=== PATIENT | male | born 1955 | race Caucasian/White ===

== ENCOUNTER → 2019-03-17 06:50 | Outpatient (CLI) | payer OTHER, SELFPAY ==
--- NOTE | 2019-03-17 | DI.ECHO.S_ITS ---
[place] [facility]---------+ [facility] +---------+ : : [address] : : : [place], [place] : : : : [id number] : : : : Phone: [phone] Echocardiogram Report + + :Name: KATIE MAIER Study Date: 03/17/2019 Height: 70 in : :[facility] Exam Location: [facility] Weight: 209 lb : : Gender: Male BSA: 2.1 m2 : :: 1955 Age: 63 yrs BP: 107/75 mmHg: :Reason For Study: AFLUTTER : : Performed By: Bruno Barcenas : :Referring: YON CADET : + + Interpretation Summary Left ventricular systolic function is moderately reduced with the ejection fraction estimated to be 30-40% with considerable vrgz-wq-[id number] variability because of the irregular rhythm and has significantly worsened compared to the previous exam. There is moderate global hypokinesis that is new compared to the previous study but without obvious focal wall motion abnormalities. The left ventricle is normal in size. The right ventricle is mild to moderately dilated and systolic function is mild to moderately reduced. The right ventricle is larger and less dynamic compared to the previous study. The right ventricular systolic pressure is estimated to be at least 27 mmHg based on an estimated right atrial pressure of 8 mm Hg, and is likely slightly higher compared to the previous study. The left atrium is severely dilated and the right atrium is moderately dilated. Both atria have significantly increased in size since the prior echo exam. There is mild mitral regurgitation and mild to moderate tricuspid regurgitation. Both are more prominent compared to the previous study. There is no other significant valvular heart disease. 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 Procedure: A two-dimensional transthoracic echocardiogram with color flow and Doppler was performed. The study quality was technically good. Comparison is made with the echocardiogram of 09/18/17. The patient was in atrial flutter with heart rates between 100-115 bpm during the exam. This is new and faster compared to the previous study. Left Ventricle: The left ventricle is normal in size. There is normal left ventricular wall thickness. Left ventricular systolic function is moderately reduced. Left ventricular ejection fraction is estimated to be 30-40% with considerable wvtm-xx-[id number] variability because of the irregular rhythm. Left ventricular function has significantly worsened compared to the previous exam. There is moderate global hypokinesis of the left ventricle. There are no focal wall motion abnormalities. This is new compared to the previous study. Diastolic function could not be accurately assessed due to atrial fibrillation. Right Ventricle: The right ventricle is mild to moderately dilated. Right ventricular systolic function is mild to moderately reduced. This is larger and less dynamic compared to the previous study. Atria: The left atrium is severely dilated. Both atria have significantly increased in size since the prior echo exam. The right atrium is moderately dilated. The interatrial septum is intact with no evidence for an atrial septal defect. Mitral Valve: The mitral valve is normal in structure and function. There is mild mitral regurgitation. This is more prominent compared to the previous study. Aortic Valve: The aortic valve is trileaflet. The aortic valve opens well. No aortic regurgitation is present. Tricuspid Valve: The tricuspid valve is normal in structure and function. There is mild to moderate tricuspid regurgitation. The right ventricular systolic pressure is estimated to be at least 27 mmHg based on an estimated right atrial pressure of 8 mm Hg. This is likely slightly higher compared to the previous study. Pulmonic Valve: The pulmonic valve is normal in structure and function. There is trace pulmonic regurgitation. There is no other significant valvular heart disease. Great Vessels: The aortic root is normal size. The dimensions of the ascending aorta are normal. The pulmonary artery is normal size. The IVC is dilated (diameter is greater than 2.1 cm) yet it collapses greater than 50% with a sniff. This suggests a right atrial pressure of 8 mm Hg. Pericardium/ Pleura There is no pericardial effusion. There is no pleural effusion. MMode/2D Measurements & Calculations LVIDd: 5.1 cm LVOT diam: 2.3 cm LVIDs: 4.3 cm Ao root diam: 3.3 cm FS: 16.3 % Aortic Jxn: 2.3 cm EPSS: 0.87 cm asc Aorta Diam: 2.9 cm IVSd: 1.0 cm LVPWd: 0.92 cm LV evangelista. diameter/BSA (cm/m^2): 2.4 LV sys. diameter/BSA (cm/m^2): 2.0 LA dimension: 2.9 cm RA long axis: 5.0 cm LA A2 area: 28.0 cm2 RA area: 22.9 cm2 LA A4 area: 29.0 cm2 RA vol: 89.4 ml LA length (vol): 6.6 cm RA : 42.0 ml/m2 LA vol: 105.1 ml IVC diam: 2.4 cm LA vol index: 49.4 ml/m2 RVD1 (basal): 5.0 cm RVD2 (mid): 5.1 cm Doppler Measurements & Calculations Ao V2 max: 90.1 cm/sec LVOT Max Paul: 72.9 cm/sec Ao V2 mean: 68.6 cm/sec LV V1 max P.1 mmHg Ao max P.3 mmHg LV V1 VTI: 16.4 cm Ao mean P.0 mmHg SHAILA(I,D): 4.1 cm2 Ao V2 VTI: 17.0 cm SHAILA(V,D): 3.4 cm2 sev ratio: 0.96 SHAILA indexed to BSA (cm^2/m^2): 1.9 MV E max paul: 61.9 cm/sec TR max paul: 218.1 cm/sec MV A max paul: 0.59 cm/sec TR max P.3 mmHg MV E/A: 104.7 PA V2 max: 49.6 cm/sec Med Peak E' Paul: 7.9 cm/sec PA V2 mean: 35.6 cm/sec E/E' med: 7.8 PA mean P.56 mmHg Lat Peak E' Paul: 9.9 cm/sec PA pr(Accel): 22.4 mmHg E/E' lat: 6.2 PA Accel Time: 0.12 sec E/e' average: 7.0 MV dec time: 0.21 sec SV(LVOT): 69.2 ml Reading Physician:MO
== END ==
PROVIDERS: PCP Internal Medicine; Visit Provider Nurse Practitioner Family
DX: I08.1 Rheumatic disorders of both mitral and tricuspid valves (principal); I48.3 Typical atrial flutter; I48.91 Unspecified atrial fibrillation
CPT/HCPCS: 93306

== ENCOUNTER 2019-05-06 21:12 | Emergency (ER) | payer OTHER, SELFPAY ==
[2019-05-06 21:19] VITALS: BP 138/65; PULSE 104; RESP 18; TEMP 36.4; O2SAT 97
--- NOTE | 2019-05-06 21:23 | DI.RAD.S_ITS ---
PROCEDURE: XR CHEST 1V INDICATIONS: chest pain TECHNIQUE: One view of the chest was acquired. COMPARISON: None. FINDINGS: Surgical changes and devices: None. Lungs and pleura: Lungs are clear. No pleural effusions or pneumothorax. Mediastinum: Mediastinal contours appear normal. Heart size is normal. Bones and chest wall: No suspicious bony lesions. Overlying soft tissues appear unremarkable. IMPRESSION: No acute disease.There are no imaging findings to explain patient's chest pain. Dictated by: Oswaldo Schmidt M.D. on 05/06/2019 at 22:30 Approved by: Oswaldo Schmidt M.D. on 05/06/2019 at 22:31
[2019-05-06 21:44] LABS: Add Manual Diff / Slide Review NO; Basophils Absolute Auto 100 /uL (0-100); Basophils Percent Auto 0.7 % (0-2); Eosinophils Absolute Auto 300 /uL (0-450); Eosinophils Percent Auto 3.5 % (2-4); Hematocrit 50.5 % (41-53); Hemoglobin 17.2 g/dL (13.5-17.5); Lymphocytes Absolute Auto 1800 /uL (1100-4500); Lymphocytes Percent Auto 24.7 % (25-40); Mean Corpuscular HGB Conc 34.1 % (30-36); Mean Corpuscular Hemoglobin 29.2 PG (26-34); Mean Corpuscular Volume 85.6 fL (80-100); Monocytes Absolute Auto 900 /uL (0-900); Monocytes Percent Auto 12.1 % (3-14); Neutrophils Absolute Auto 4400 /uL (1500-7000); Platelet Count 229 X10^3/uL (150-400); Red Cell Distribution Width 13.4 % (11.6-14.8); White Blood Cell Count 7.5 X10^3/uL (4.5-11.0)
[2019-05-06 21:51] LABS: Prothrombin Time 11.9 SECONDS (10.1-12.7)
[2019-05-06 21:53] LABS: PTT Partial Thromboplastin Tim 34 SECONDS (26.4-36.2)
[2019-05-06 21:56] LABS: Alanine Aminotransferase 16 IU/L (21-72); Albumin 4.3 g/dL (3.5-5.0); Albumin Globulin Ratio 1.3 (1.0-2.8); Alkaline Phosphatase 90 U/L (38-126); Aspartate Aminotransferase 35 IU/L (17-59); BUN Creatinine Ratio 21.3 (6-22); Bilirubin Total 0.5 mg/dL (0.2-1.3); Blood Urea Nitrogen 17 mg/dL (9-20); Calcium 9.5 mg/dL (8.4-10.2); Carbon Dioxide 25 mmol/L (22-32); Chloride 107 mmol/L (98-107); Creatine Kinase 164 U/L (55-170); Estimated Glomerular Filt Rate > 60.0 mL/min (>60); Globulin 3.2 g/dL (1.7-4.1); Glucose 120 mg/dL (80-110); HEMOLYSIS 53 (0-50); Lipase 234 U/L (23-300); Potassium 4.2 mmol/L (3.4-5.1); Sodium 140 mmol/L (137-145); Total Protein 7.5 g/dL (6.3-8.2)
[2019-05-06 22:07] LABS: Troponin I < 0.012 ng/mL (0.01-0.034)
[2019-05-06 22:11] LABS: Creatine Kinase MB 1.56 ng/mL (<2.37)
--- NOTE | 2019-05-06 22:11 | ED.ARRPALP ---
HPI - Arrhythmia/Palpitations General Chief Complaint: Arrhythmia/Palpitations Stated Complaint: A-FIB SYMPTOMS POST ABLASION Time Seen by Provider: 05/06/19 21:31 Source: patient and family Mode of arrival: ambulatory Limitations: no limitations History of Present Illness HPI narrative: Patient is a 63-year-old male with a known history of atrial fibrillation. He states that approximately 3 weeks ago he underwent a cardioversion for ?atrial flutter ?he is currently on anticoagulation and has been since that procedure. He states that since that procedure he has had no symptoms. He is not currently on a beta-sherly any other anti arrhythmic per his knowledge. He states that several hours prior to arrival here in the emergency department he felt like he went back in atrial fibrillation with palpitations and a fast heart rate. He denies any chest pain or shortness of breath no headaches. No vision changes. No balance issues. Related Data Allergies Allergy/AdvReac Type Severity Reaction Status Date / Time No Known Drug Allergies Allergy Verified 05/06/19 21:23 Review of Systems Constitutional Denies frequent falls and Denies headache(s) ENT Ears, Nose, Mouth, and Throat: Denies vertigo, Denies dizziness and Denies headache(s) Cardiovascular Denies chest pain, Reports rapid heart rate, Reports palpitations and Denies dyspnea Respiratory Denies dyspnea Gastrointestinal Gastrointestinal: Denies abdominal pain, Denies nausea and Denies vomiting Genitourinary Denies dysuria Musculoskeletal Denies myalgias, Denies arthralgias and Denies tingling Integumentary/Breasts Denies lesions and Denies rash Neurologic Denies confusion, Denies vertigo, Denies dizziness, Denies frequent falls, Denies headache(s), Denies tingling and Denies paresthesias Psychiatric Denies confusion Endocrine Reports palpitations Hematologic/Lymphatic Denies easy bleeding and Denies easy bruising Allergic/Immunologic Denies urticaria [facility]LY [facility] Medical History Atrial fibrillation and flutter (Acute) Social History Smoking Status: Never smoker Social History Smoking Status: Never smoker Exam Initial Vital Signs Initial Vital Signs: Vital Signs Temperature 97.5 F L 05/06/19 21:19 Pulse Rate 104 H 05/06/19 21:19 Respiratory Rate 18 05/06/19 21:19 Blood Pressure 138/65 05/06/19 21:19 Pulse Oximetry 97 05/06/19 21:19 Const General: cooperative, comfortable, well developed, well groomed and No acute distress Orientation: alert, awake and oriented x3 HENMT Head: normal to inspection and normocephalic Chest Chest: normal inspection of the chest Resp Effort & Inspection: normal respiratory effort Auscultation: clear to auscultation bilaterally Cardio Rate: tachycardic Rhythm: abnormal rhythm Pulses: radial pulses present GI Inspection: non-distended Palpation: soft Skin Lesions: no lesions Rashes: no rashes Neuro General: alert, awake and oriented x3 Cognition: normal cognition Speech: speech normal Motor: muscle tone normal throughout Extrem General: normal to inspection and capillary refill normal Psych Appearance: well kempt Procedures Cardioversion Consent Signed: Yes Indication: Atrial fibrillation Cardiac rhythm prior to cardioversion: Atrial fibrillation Stability: Stable Number of attempts (shocks): 1 Joules used: 150 Procedural Sedation Patient Age: Patient is 5yrs or older Consent signed: Yes Time out performed: Yes Indication: cardioversion Presedation Evaluation: See HPI ASA Class: II Mallampati Airway Classification: Class I Preparation: stewarding supervisor applied, pulse oximeter, capnometry used, supplemental O2 applied and suction/airway equipment at bedside Fentanyl dose (mcg): 50 IV Propofol dose (mg): 50 ED Sedation Level: Minimal Patient Tolerated Procedure: Well and No complications Complications: none Scores GCS [place] coma scale eye opening: Spontaneous [place] coma scale verbal response: Orientated [place] coma scale motor response: Obey commands Loly coma scale total score: 15 Course Orders Ordered: ED Orders 05/06/19 21:23 XR chest 1V Stat EKG-12 Lead Stat 05/06/19 21:35 Complete Blood Count AUTO DIFF Stat Comprehensive Metabolic Panel Stat Lipase Stat Partial Thromboplastin Time Stat Prothrombin Time INR Stat Troponin & CK Cardiac Panel Stat 05/07/19 00:03 EKG-12 Lead Stat RT Consult Eval and Treat Now Discontinued Medications Diltiazem HCl (Cardizem) 20 mg IV NOW ONE Stop: 05/06/19 22:13 Last Admin: 05/06/19 22:24 Dose: 20 mg Fentanyl (Sublimaze) 50 mcg IV NOW ONE Stop: 05/07/19 00:03 Last Admin: 05/07/19 00:15 Dose: 50 mcg Sodium Chloride (Normal Saline 0.9%) 1,000 mls @ 150 mls/hr IV CONT RUBEN Last Infusion: 05/07/19 01:25 Dose: 0 mls/hr Infusion: 05/07/19 01:24 Dose: 0 mls/hr Admin: 05/06/19 22:23 Dose: 150 mls/hr Propofol (Diprivan) 100 mg IV NOW ONE Stop: 05/07/19 00:03 Last Admin: 05/07/19 00:35 Dose: 50 mg Vital Signs - 8 hr 05/06/19 21:19 05/06/19 22:30 05/07/19 00:31 Temperature 97.5 F L Pulse Rate 104 H 75 135 H Respiratory Rate 18 13 18 Blood Pressure 138/65 Blood Pressure [Right Arm] 112/61 Pulse Oximetry 97 98 96 05/07/19 00:36 05/07/19 00:41 05/07/19 00:46 Temperature Pulse Rate 48 L 54 L 54 L Respiratory Rate 16 18 18 Blood Pressure Blood Pressure [Right Arm] 95/56 L 110/67 106/69 Pulse Oximetry 95 97 96 05/07/19 00:51 05/07/19 00:56 05/07/19 01:01 Temperature Pulse Rate 55 L 57 L 59 L Respiratory Rate 16 18 16 Blood Pressure Blood Pressure [Right Arm] 100/70 103/64 110/70 Pulse Oximetry 97 96 95 05/07/19 01:06 05/07/19 01:25 Temperature Pulse Rate 55 L 59 L Respiratory Rate 14 18 Blood Pressure 108/68 Blood Pressure [Right Arm] 102/65 Pulse Oximetry 96 97 MDM - Arrhythmia/Palpitations Lab Data Attestation: I reviewed the patient's lab results. Result diagrams: 05/06/19 21:35 05/06/19 21:35 Lab Results 05/06/19 05/06/19 05/06/19 Range/Units 21:35 21:35 21:35 WBC 7.5 (4.5-11.0) X10^3/uL RBC 5.90 (4.5-5.9) X10^6/uL Hgb 17.2 (13.5-17.5) g/dL Hct 50.5 (41-53) % MCV 85.6 (80-100) fL MCH 29.2 (26-34) PG MCHC 34.1 (30-36) % RDW 13.4 (11.6-14.8) % Plt Count 229 (150-400) X10^3/uL Neut % (Auto) 59.0 (50-75) % Lymph % (Auto) 24.7 L (25-40) % [place] % (Auto) 12.1 (3-14) % Eos % (Auto) 3.5 (2-4) % Baso % (Auto) 0.7 (0-2) % Neut # (Auto) 4400 (5942-5019) /uL Lymph # (Auto) 1800 (4729-3105) /uL [place] # (Auto) 900 (0-900) /uL Eos # (Auto) 300 (0-450) /uL Baso # (Auto) 100 (0-100) /uL PT 11.9 (10.1-12.7) SECONDS INR 1.0 (0.9-1.3) APTT 34 (26.4-36.2) SECONDS Sodium 140 (137-145) mmol/L Potassium 4.2 (3.4-5.1) mmol/L Chloride 107 (98-107) mmol/L Carbon Dioxide 25 (22-32) mmol/L BUN 17 (9-20) mg/dL Creatinine 0.80 (0.66-1.25) mg/dL Estimated GFR > 60.0 (>60) mL/min BUN/Creatinine Ratio 21.3 (6-22) Glucose 120 H (80-110) mg/dL Calcium 9.5 (8.4-10.2) mg/dL Total Bilirubin 0.5 (0.2-1.3) mg/dL AST 35 (17-59) IU/L ALT 16 L (21-72) IU/L Alkaline Phosphatase 90 (38-126) U/L Total Creatine Kinase 164 (55-170) U/L CK-MB (CK-2) 1.56 (<2.37) ng/mL CK-MB (CK-2) Rel Index 1.0 L (1.5-5.0) % Troponin I < 0.012 (0.01-0.034) ng/mL Total Protein 7.5 (6.3-8.2) g/dL Albumin 4.3 (3.5-5.0) g/dL Globulin 3.2 (1.7-4.1) g/dL Albumin/Globulin Ratio 1.3 (1.0-2.8) Lipase 234 (23-300) U/L Imaging Data Chest x-ray: Radiologist's impression: [address] [address] XRay Report Signed Patient: Ronald ConcepcionMR#: [id number] : 5Acct:[id number] Age/Sex: 63 / MDate of Service: 05/06/19 Loc: ED Accession Number: [id number] Procedure: XR chest 1V Ordering Provider: James Sterling D.O. PROCEDURE: XR CHEST 1V INDICATIONS: chest pain TECHNIQUE: One view of the chest was acquired. COMPARISON: None. FINDINGS: Surgical changes and devices: None. Lungs and pleura: Lungs are clear. No pleural effusions or pneumothorax. Mediastinum: Mediastinal contours appear normal. Heart size is normal. Bones and chest wall: No suspicious bony lesions. Overlying soft tissues appear unremarkable. IMPRESSION: No acute disease.There are no imaging findings to explain patient's chest pain. Dictated by: Oswaldo Schmidt M.D. on 05/06/2019 at 22:30 Approved by: Oswaldo Schmidt M.D. on 05/06/2019 at 22:31 ECG Data Attestation: I personally reviewed and interpreted this ECG as follows: Prior ECG tracings: not available for review Interpretation: EKG upon arrival time 2120 hours Atrial fibrillation Ventricular rate of 131 Normal QRS Normal QTC One PVC Nonspecific ST T wave changes Post cardioversion EKG time 1236 Sinus bradycardia Ventricular rate of 52 Normal axis Normal QRS Normal QTC No ST T wave changes MDM Narrative Medical decision making narrative: Had a long discussion with the patient upon arrival regarding symptoms. He has been on anticoagulation since his cardioversion 3 weeks ago. He is in atrial fibrillation here in the ER with a heart rate ranging from 100s to 140s. He is stable. Had a long discussion with him regarding his symptoms to include rate control versus rhythm control. Patient stated that he would like me to talk with his consulting it architect prior to any interventions here in the emergency department. I did discuss with the on-call consulting it architect to the [facility] who agreed that either rhythm control cardioversion or rate control is warranted. We also discussed the possibility of the patient being discharged home on metoprolol to see if he does not convert on his own in the next couple days. I did discuss this with the patient and his who is at bedside. We discussed the risks and benefits of all of these procedures. He was given Cardizem were waiting for the consulting it architect to return my call and he had no response to this medication. After this discussion and an extended discussion with his he did decide to undergo the cardioversion. The consent was signed. He was converted with 1 attempt. Patient tolerated this procedure well. He will continue his anticoagulation. He is going to contact his consulting it architect tomorrow. Discussed return precautions and follow-up instructions. He expressed understanding and agreement with plan. Critical Care Time Critical Care Time: Yes Total Critical Care Time: 35 Attestation: The high probability of a clinically significant, sudden or life threatening deterioration of the cardiovascular system(s) required my full and direct attention, intervention and personal management. The aggregate critical care time was 35 minutes. This time is in addition to time spent performing reported procedures but includes the following: [] Data Review and interpretation [] Patient assessment and monitoring of vital signs [] Documentation [] Medication orders and management Discharge Plan Departure Patient Disposition: Home Clinical Impression: Atrial fibrillation Qualifiers: Atrial fibrillation type: paroxysmal Qualified Code(s): I48.0 - Paroxysmal atrial fibrillation Discharge Date/Time: 05/07/19 01:25 Interventions: ED Discharge Assessment Last Done: 05/07/19 01:25 Instructions: DI for Cardioversion, DI for Atrial Fibrillation Activity Restrictions/Additional Instructions: Continue all of your medications as directed by your consulting it architect/primary care provider. I do recommend you contact your consulting it architect tomorrow for follow-up. Return to the emergency department for any new symptoms to include chest pain, shortness of breath, lightheadedness, or any other concerning symptoms Referrals: Kyle Banuelos MD [Primary Care Provider] -
[2019-05-06] MEDS: SODIUM CHLORIDE 0.9% 1,000 ML 150 ML IV (22:23)
[2019-05-06] MEDS: dilTIAZem 5 MG/ML SDV 20 MG IV (22:24)
[2019-05-06 22:30] VITALS: BP 112/61; PULSE 75; RESP 13; O2SAT 98
[2019-05-07] VITALS (9 sets, daily range): BP systolic 95–110; BP diastolic 56–70; PULSE 48–135; RESP 14–18; O2SAT 95–97
[2019-05-07] MEDS: fentaNYL 100 MCG/2 ML INJ 50 MCG IV (00:15)
[2019-05-07] MEDS: PROPOFOL 200 MG/20 ML VIAL 100 MG IV (00:35)
== END 2019-05-07 01:25 | disposition home or self-care (01) ==
PROVIDERS: Emergency Provider Emergency Medicine; PCP Internal Medicine
DX: I48.91 Unspecified atrial fibrillation (principal)
CPT/HCPCS: 36591; 71045; 80053; 82550; 82553; 83690; 84484; 85025; 85610; 85730; 92960; 93005; 93010; 96361; 96374; 96375; 99152; 99153; 99285; J2704; J3010

== ENCOUNTER 2019-07-17 12:15 | Emergency (ER) | payer OTHER, SELFPAY ==
[2019-07-17] VITALS (12 sets, daily range): BP systolic 77–113; BP diastolic 43–72; PULSE 40–140; RESP 12–99; TEMP 36.8; O2SAT 96–99
--- NOTE | 2019-07-17 12:28 | DI.RAD.S_ITS ---
PROCEDURE: XR CHEST 1V INDICATIONS: heart palpitations TECHNIQUE: One view of the chest was acquired. COMPARISON: [facility], CR, XR CHEST 1V, 05/06/2019, 21:28. FINDINGS: Surgical changes and devices: None. Lungs and pleura: Lungs are clear. No pleural effusions or pneumothorax. Mediastinum: Mediastinal contours appear normal. Heart size is normal. Bones and chest wall: No suspicious bony lesions. Overlying soft tissues appear unremarkable. IMPRESSION: No acute cardiopulmonary abnormality. Dictated by: Ian Nelson M.D. on 07/17/2019 at 12:01 Approved by: Ian Nelson M.D. on 07/17/2019 at 12:02
[2019-07-17] MEDS: dilTIAZem 5 MG/ML SDV 20 MG IV (12:33)
[2019-07-17] MEDS: SODIUM CHLORIDE 0.9% 1,000 ML 1000 ML IV ×2 (12:34→14:23)
[2019-07-17 12:35] LABS: Add Manual Diff / Slide Review NO; Basophils Absolute Auto 100 /uL (0-100); Basophils Percent Auto 0.6 % (0-2); Eosinophils Absolute Auto 100 /uL (0-450); Eosinophils Percent Auto 1.7 % (2-4); Hematocrit 48.7 % (41-53); Hemoglobin 16.8 g/dL (13.5-17.5); Lymphocytes Absolute Auto 1700 /uL (1100-4500); Lymphocytes Percent Auto 19.6 % (25-40); Mean Corpuscular HGB Conc 34.4 % (30-36); Mean Corpuscular Hemoglobin 29.5 PG (26-34); Mean Corpuscular Volume 85.9 fL (80-100); Monocytes Absolute Auto 800 /uL (0-900); Monocytes Percent Auto 9.3 % (3-14); Neutrophils Absolute Auto 6000 /uL (1500-7000); Neutrophils Percent Auto 68.8 % (50-75); Platelet Count 260 X10^3/uL (150-400); Red Blood Cell Count 5.68 X10^6/uL (4.5-5.9); Red Cell Distribution Width 14.3 % (11.6-14.8); White Blood Cell Count 8.7 X10^3/uL (4.5-11.0)
[2019-07-17 12:41] LABS: INR 1.1 (0.9-1.3); Prothrombin Time 12.4 SECONDS (10.1-12.7)
[2019-07-17 12:44] LABS: PTT Partial Thromboplastin Tim 36 SECONDS (26.4-36.2)
[2019-07-17 12:52] LABS: Alanine Aminotransferase 22 IU/L (21-72); Albumin Globulin Ratio 1.4 (1.0-2.8); Alkaline Phosphatase 74 U/L (38-126); Aspartate Aminotransferase 33 IU/L (17-59); BUN Creatinine Ratio 16.7 (6-22); Bilirubin Total 1.1 mg/dL (0.2-1.3); Blood Urea Nitrogen 15 mg/dL (9-20); Calcium 9.3 mg/dL (8.4-10.2); Carbon Dioxide 26 mmol/L (22-32); Chloride 105 mmol/L (98-107); Creatine Kinase 124 U/L (55-170); Estimated Glomerular Filt Rate > 60.0 mL/min (>60); Globulin 2.9 g/dL (1.7-4.1); Glucose 110 mg/dL (80-110); Potassium 4.6 mmol/L (3.4-5.1); Sodium 138 mmol/L (137-145); Total Protein 6.9 g/dL (6.3-8.2)
[2019-07-17 13:01] LABS: Troponin I < 0.012 ng/mL (0.01-0.034)
[2019-07-17 13:07] LABS: CKMB % Relative Index 1.5 % (1.5-5.0); Creatine Kinase MB 1.87 ng/mL (<2.37); HEMOLYSIS 18 (0-50)
--- NOTE | 2019-07-17 13:09 | ED_ITS ---
HPI - Arrhythmia/Palpitations General Chief Complaint: Arrhythmia/Palpitations Stated Complaint: Heart Palpitations Time Seen by Provider: 07/17/19 12:22 Source: patient Mode of arrival: Ambulatory Limitations: no limitations History of Present Illness HPI narrative: Patient is a 63-year-old male who presents with heart palpitations. He has a history of atrial fibrillation on Eliquis and Cardizem. He has previously been cardioverted a couple of times he has even had an ablation at the [facility]. He states that he missed 1 day's worth of Eliquis he has been on it for a long time prior but missed yesterday's doses, last evening he felt immediately that he went into atrial fibrillation he took an extra dose of Cardizem he continues to feel it now and is in AFib with RVR in the ED. Heart rate in the 130s. He has some fluttering in his chest no dizziness or lightheadedness. MD complaint: rapid heart beat Related Data Allergies Allergy/AdvReac Type Severity Reaction Status Date / Time No Known Drug Allergies Allergy Verified 05/06/19 21:23 Review of Systems Review of Systems Narrative: GENERAL: Denies chills, fatigue, malaise, fever, sweats, travel HEENT: Denies sinus pain, ear pain, sore throat, difficulty swallowing, neck pain RESPIRATORY: Denies dyspnea, cough, wheezing, hemoptysis, sputum. CARDIOVASCULAR: See HPI GASTROINTESTINAL: Denies nausea, vomiting, abdominal pain, diarrhea, constipati on, melena. : Denies dysuria, frequency, incontinence, hematuria, urinary retention, flank pain. MUSCULOSKELETAL: Denies weakness, joint pain, or bony pain SKIN: No rash, no erythema, no pruritus NEUROLOGIC: Denies weakness, dizziness, headache, numbness, change in speech, confusion PSYCHIATRIC: No concerning psychosocial issues. 12 point review of systems is negative except for those stated above and HPI Patient History Medical History Atrial fibrillation and flutter (Acute) Social History Smoking Status: Never smoker Social History Smoking Status: Never smoker alcohol intake frequency: a few times a week Substance Use Type: does not use Exam Initial Vital Signs Initial Vital Signs: Vital Signs Pulse Rate 140 H 07/17/19 12:24 Respiratory Rate 17 07/17/19 12:24 Blood Pressure 113/63 07/17/19 12:24 Pulse Oximetry 96 07/17/19 12:24 GENERAL: Well-appearing, well-nourished and in no acute distress. HEENT: Head atraumatic,EOMI, pupils reactive, face symmetric, moist mucous membrane CARDIOVASCULAR: Irregularly irregular tachycardic RESPIRATORY: Breath sounds equal bilaterally, no wheezes rales or rhonchi. ABDOMEN: Soft, nontender. Normoactive bowel sounds all 4 quadrants. No guarding or rebound. EXTREMITIES: Normal range of motion, no clubbing or edema. Neurovascularly intact NEUROLOGICAL: Alert and oriented x4.Normal gait and speech. SKIN: Warm, dry, no laceration, no petechiae, no rashes or lesions. Procedures Cardioversion Consent Signed: Yes Indication: Atrial fibrillation with RVR Cardiac rhythm prior to cardioversion: Atrial fibrillation Stability: Stable Number of attempts (shocks): 1 Joules used: 150 Additional Comments: Patient was noted to have a very long pause after cardioversion and was bradycardic in the 40s after cardioversion. Procedural Sedation Patient Age: Patient is 5yrs or older Consent signed: Yes Time out performed: Yes Indication: cardioversion ASA Class: I Mallampati Airway Classification: Class I Preparation: monitor and storage bin tender applied, pulse oximeter, capnometry used and supplemental O2 applied IV Etomidate dose (mg): 15 Intraservice time/total sedation time (min): 15 ED Sedation Level: Moderate (Concious) Complications: bradycardia Interventions: Airway repositioned and Assist by BVM Additional Comments: After cardioversion patient had a long pause and was bradycardic in the 40s. He did require BVM cyst as well. Course Orders Ordered: ED Orders 07/17/19 12:25 Complete Blood Count AUTO DIFF Stat Comprehensive Metabolic Panel Stat Magnesium Stat Partial Thromboplastin Time Stat Prothrombin Time INR Stat Troponin & CK Cardiac Panel Stat EKG-12 Lead Stat 07/17/19 12:28 XR chest 1V Stat Discontinued Medications Diltiazem HCl (Cardizem) 20 mg IV NOW ONE Stop: 07/17/19 12:29 Last Admin: 07/17/19 12:33 Dose: 20 mg Documented by: VICTOR MANUEL Etomidate (Amidate) 9 mg IV NOW ONE Stop: 07/17/19 13:16 Last Admin: 07/17/19 13:39 Dose: 9 mg Documented by: VICTOR MANUEL Sodium Chloride (Normal Saline 0.9%) 1,000 mls @ 1,000 mls/hr IV CONT RUBEN Last Infusion: 07/17/19 14:20 Dose: 0 mls/hr Documented by: VICTOR MANUEL Admin: 07/17/19 12:34 Dose: 1,000 mls/hr Documented by: VICTOR MANUEL Sodium Chloride (Normal Saline 0.9%) 1,000 mls @ 1,000 mls/hr IV BOLUS ONE Stop: 07/17/19 15:31 Last Infusion: 07/17/19 15:34 Dose: 0 mls/hr Documented by: VICTOR MANUEL Admin: 07/17/19 14:23 Dose: 1,000 mls/hr Documented by: VICTOR MANUEL Ondansetron HCl (Zofran) 4 mg IV NOW ONE Stop: 07/17/19 14:18 Last Admin: 07/17/19 14:23 Dose: 4 mg Documented by: VICTOR MANUEL Vital Signs Vital signs: Vital Signs - 8 hr 07/17/19 12:24 07/17/19 12:33 07/17/19 14:05 Temperature Pulse Rate 140 H 125 H 122 H Respiratory Rate 17 16 Blood Pressure 113/63 107/53 L Blood Pressure [Right Arm] 102/63 Pulse Oximetry 96 98 07/17/19 14:10 07/17/19 14:16 07/17/19 14:20 Temperature Pulse Rate 41 L 40 L 42 L Respiratory Rate 12 20 15 Blood Pressure Blood Pressure [Right Arm] 88/59 L 84/56 L 79/53 L Pulse Oximetry 96 97 96 07/17/19 14:23 07/17/19 14:28 07/17/19 14:46 Temperature Pulse Rate 41 L 44 L 45 L Respiratory Rate 14 13 13 Blood Pressure Blood Pressure [Right Arm] 79/53 L 77/49 L 88/72 L Pulse Oximetry 96 97 96 07/17/19 15:08 07/17/19 16:06 07/17/19 16:40 Temperature 98.3 F Pulse Rate 47 L 53 L 56 L Respiratory Rate 16 99 H 18 Blood Pressure 106/56 L Blood Pressure [Right Arm] 101/67 90/43 L Pulse Oximetry 99 98 MDM - Arrhythmia/Palpitations Lab Data Attestation: I reviewed the patient's lab results. Result diagrams: 07/17/19 12:25 07/17/19 12:25 Labs: Lab Results 07/17/19 07/17/19 07/17/19 Range/Units 12:25 12:25 12:25 WBC 8.7 (4.5-11.0) X10^3/uL RBC 5.68 (4.5-5.9) X10^6/uL Hgb 16.8 (13.5-17.5) g/dL Hct 48.7 (41-53) % MCV 85.9 (80-100) fL MCH 29.5 (26-34) PG MCHC 34.4 (30-36) % RDW 14.3 (11.6-14.8) % Plt Count 260 (150-400) X10^3/uL Neut % (Auto) 68.8 (50-75) % Lymph % (Auto) 19.6 L (25-40) % [place] % (Auto) 9.3 (3-14) % Eos % (Auto) 1.7 L (2-4) % Baso % (Auto) 0.6 (0-2) % Neut # (Auto) 6000 (0497-3885) /uL Lymph # (Auto) 1700 (7936-0927) /uL [place] # (Auto) 800 (0-900) /uL Eos # (Auto) 100 (0-450) /uL Baso # (Auto) 100 (0-100) /uL PT 12.4 (10.1-12.7) SECONDS INR 1.1 (0.9-1.3) APTT 36 D (26.4-36.2) SECONDS Sodium 138 (137-145) mmol/L Potassium 4.6 (3.4-5.1) mmol/L Chloride 105 (98-107) mmol/L Carbon Dioxide 26 (22-32) mmol/L BUN 15 (9-20) mg/dL Creatinine 0.90 (0.66-1.25) mg/dL Estimated GFR > 60.0 (>60) mL/min BUN/Creatinine Ratio 16.7 (6-22) Glucose 110 (80-110) mg/dL Calcium 9.3 (8.4-10.2) mg/dL Magnesium 2.0 (1.6-2.3) mg/dL Total Bilirubin 1.1 (0.2-1.3) mg/dL AST 33 (17-59) IU/L ALT 22 (21-72) IU/L Alkaline Phosphatase 74 (38-126) U/L Total Creatine Kinase 124 (55-170) U/L CK-MB (CK-2) 1.87 (<2.37) ng/mL CK-MB (CK-2) Rel Index 1.5 (1.5-5.0) % Troponin I < 0.012 (0.01-0.034) ng/mL Total Protein 6.9 (6.3-8.2) g/dL Albumin 4.0 (3.5-5.0) g/dL Globulin 2.9 (1.7-4.1) g/dL Albumin/Globulin Ratio 1.4 (1.0-2.8) Imaging Data Chest x-ray: Radiologist's impression: PROCEDURE: XR CHEST 1V INDICATIONS: heart palpitations TECHNIQUE: One view of the chest was acquired. COMPARISON: [facility], , XR CHEST 1V, 05/06/2019, 21:28. FINDINGS: Surgical changes and devices: None. Lungs and pleura: Lungs are clear. No pleural effusions or pneumothorax. Mediastinum: Mediastinal contours appear normal. Heart size is normal. Bones and chest wall: No suspicious bony lesions. Overlying soft tissues appear unremarkable. IMPRESSION: No acute cardiopulmonary abnormality. Dictated by: Ian Nelson M.D. on 07/17/2019 at 12:01 ECG Data Attestation: I personally reviewed and interpreted this ECG as follows: Prior ECG tracings: available for review Interpretation: Atrial fibrillation rate [address] changes no T-wave inversions similar to previous EKGs EKG 2. Normal sinus rhythm rate [address] changes no T-wave inversions p.r. interval 178 QRS at 99 QTC is 394 MDM Narrative Medical decision making narrative: Patient have long pause after cardioversion and was bradycardic and hypotensive. He was awake and alert. IV fluids bolus s tarted. His blood pressure and heart rate did improve slowly over time. Patient remained in sinus rhythm. It does not appear that this happened previously with propofol. The patient overall did tolerate procedure very well. He was ambulatory without any symptoms at time of discharge. He was monitored in the ED for some time after the procedure. 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 *Return to ER if you should have heart palpitations, chest pain or any new, worsening or concerning symptoms Referrals: Kyle Banuelos MD [Primary Care Provider] -
[2019-07-17] MEDS: ETOMIDATE 2 MG/ML 10 ML VIAL 9 MG IV (13:39)
[2019-07-17] MEDS: ONDANSETRON 4 MG/2 ML INJ IV (14:23)
== END 2019-07-17 16:42 | disposition home or self-care (01) ==
PROVIDERS: Emergency Provider Emergency Medicine; PCP Internal Medicine
DX: I48.0 Paroxysmal atrial fibrillation (principal); I95.9 Hypotension, unspecified
CPT/HCPCS: 36415; 71045; 80053; 82550; 82553; 83735; 84484; 85025; 85610; 85730; 92960; 93005; 94770; 96361; 96374; 96375; 99152; 99285; J2405

== ENCOUNTER → 2020-01-19 16:59 | Outpatient (CLI) | payer OTHER, SELFPAY ==
[2020-01-21 09:03] LABS: COVID19 Sendout Not Detected (Not Detected)
== END ==
PROVIDERS: PCP Internal Medicine; Visit Provider Family Medicine
DX: Z11.9 Encounter for screening for infectious and parasitic diseases, unspecified (principal)
CPT/HCPCS: 87635

== ENCOUNTER → 2020-04-12 18:49 | Outpatient (ROUT) | payer OTHER, SELFPAY ==
[2020-04-12 19:06] LABS: Aspartate Aminotransferase 33 IU/L (17-59); BUN Creatinine Ratio 19.3 (6-22); Blood Urea Nitrogen 16 mg/dL (9-20); Calcium 9.8 mg/dL (8.4-10.2); Carbon Dioxide 23 mmol/L (22-32); Chloride 106 mmol/L (98-107); Cholesterol 178 mg/dL (140-199); Estimated Glomerular Filt Rate > 60.0 mL/min (>60); Glucose 89 mg/dL (80-110); HDL Cholesterol 45 mg/dL (40-60); HEMOLYSIS < 15 (0-50); LDL Cholesterol Calculated 113 mg/dL (<100); Potassium 4.3 mmol/L (3.4-5.1); Sodium 138 mmol/L (137-145); Triglycerides 98 mg/dL (35-150)
[2020-04-12 19:34] LABS: Prostate Specific Antigen 3.49 ng/mL (0.10-4.00)
== END ==
PROVIDERS: PCP Internal Medicine; Visit Provider Internal Medicine
DX: Z00.00 Encounter for general adult medical examination without abnormal findings (principal); E78.2 Mixed hyperlipidemia; I48.3 Typical atrial flutter
CPT/HCPCS: 80048; 80061; 84153; 84450

== ENCOUNTER 2020-04-26 05:13 | Emergency (ER) | payer OTHER, SELFPAY ==
[2020-04-26] VITALS (8 sets, daily range): BP systolic 138–221; BP diastolic 70–108; PULSE 63–76; RESP 16; TEMP 36.1; O2SAT 93–98; BMI 29.5
--- NOTE | 2020-04-26 05:25 | ED.ABDPAIN ---
HPI - Abdominal Pain General Chief Complaint: Back Pain/Injury Stated Complaint: states kidney stone, pain, nausea Time Seen by Provider: 04/26/20 05:25 History of Present Illness HPI narrative: 64-year-old gentleman with the history of atrial fibrillation now post ablation, in sinus rhythm and able to stop Eliquis last week. Also has a history of high blood pressure hyperlipidemia and kidney stones. Been having increasing right flank colicky pain for the last 2 days. He saw his primary care physician, Dr. Banuelos, yesterday and was pain-free at the time. With microscopic hematuria and history Dr. Banuelos felt that his symptoms were consistent with a recurrent kidney stone. He started him on Flomax and he was given a brief course of oxycodone to help with pain control. Over the next 24 hours he has continued to have colicky right flank pain worsening this evening despite appropriate oral pain control and progressing to the point where he is in severe pain with diaphoresis and vomiting. Related Data Home Medications Medication Instructions Recorded Confirmed apixaban 5 mg tablet 5 mg PO BID 01/19/20 01/19/20 carvedilol 3.125 mg tablet 3.125 mg PO BID 01/19/20 01/19/20 lisinopril 2.5 mg tablet 2.5 mg PO DAILY 01/19/20 01/19/20 Allergies Allergy/AdvReac Type Severity Reaction Status Date / Time No Known Drug Allergies Allergy Verified 01/19/20 16:45 Review of Systems Review of Systems Narrative: Due to his severe pain he is not able to initially participate fully in review of systems however his is quite helpful and she notes Remainder of review of systems is otherwise unremarkable for Constitutional: Fevers, chills, weakness ENT: No sore throat, neck pain, ear pain CV: Chest pain, palpitations, dyspnea on exertion Respiratory: Cough, wheeze, dyspnea GI: diarrhea, change in bowel habits, black or bloody stools : Dysuria, gross hematuria, flank pain MS: Muscle weakness, numbness, joint swelling or warmth Skin: Rashes, nonhealing lesions Neuro: Syncope, dizziness, tingling Patient History Medical History Atrial fibrillation and flutter (Acute) Hyperlipidemia (Acute) Hypertension (Acute) Social History Smoking Status: Never smoker Smoking Status: Never smoker alcohol intake frequency: a few times a week Substance Use Type: does not use Exam Narrative Exam Narrative: General: Healthy appearing, in severe distress due to right flank pain, retching violently and unable to cooperate fully with history taking HEENT: Moist mucous membranes, normal sclera with reactive pupils, Neck: , supple Respiratory: Lungs are clear to auscultation, no wheezing no rales no rhonchi. Full and symmetrical air movement Cardiac: Tachycardic with regular rhythm no murmurs no bruits Abdomen: Soft nontender good bowel tones, right flank pain Skin: Diaphoretic and pale, no rashes Neurologic: Grossly neurologically intact with no obvious asymmetries or abnormalities Extremities: No trauma, well perfused Initial Vital Signs Initial Vital Signs: Vital Signs Pulse Rate 74 04/26/20 05:30 Pulse Oximetry 98 04/26/20 05:30 Course Orders Ordered: ED Orders 04/26/20 05:33 CT kidney ureter bladder (KUB) Stat Complete Blood Count AUTO DIFF Stat Comprehensive Metabolic Panel Stat 04/26/20 06:35 Urinalysis and Microscopic Stat Discontinued Medications Hydromorphone HCl (Dilaudid) 0.5 mg IV NOW ONE Stop: 04/26/20 05:33 Last Admin: 04/26/20 05:40 Dose: 0.5 mg Documented by: KING Hydromorphone HCl (Dilaudid) 0.5 mg IV NOW ONE Stop: 04/26/20 05:56 Last Admin: 04/26/20 06:01 Dose: 0.5 mg Documented by: KING Sodium Chloride (Normal Saline 0.9%) 1,000 mls @ 1,000 mls/hr IV BOLUS ONE Stop: 04/26/20 06:31 Last Infusion: 04/26/20 06:32 Dose: 0 mls/hr Documented by: Admin: 04/26/20 05:40 Dose: 1,000 mls/hr Documented by: KING Ketorolac Tromethamine (Toradol) 15 mg IV NOW ONE Stop: 04/26/20 05:33 Last Admin: 04/26/20 05:41 Dose: 15 mg Documented by: KING Ondansetron HCl (Zofran) 4 mg IV NOW ONE Stop: 04/26/20 05:33 Last Admin: 04/26/20 05:41 Dose: 4 mg Documented by: KING Vital Signs Vital signs: Vital Signs - 8 hr 04/26/20 05:30 04/26/20 05:31 04/26/20 05:42 Temperature 97 F L Pulse Rate 74 76 71 Respiratory Rate 16 Blood Pressure 221/108 H 221/108 H Pulse Oximetry 98 98 97 MDM - Abdominal Pain Medical Records Attestation: I reviewed the patient's medical records. Lab Data Attestation: I reviewed the patient's lab results. Lab results narrative: Urinalysis shows red blood cells but no white blood cells or bacteria to suggest pyelonephritis Result diagrams: 04/26/20 05:33 04/26/20 05:33 Labs: Lab Results 04/26/20 04/26/20 04/26/20 Range/Units 05:33 05:33 06:35 WBC 12.9 H (4.5-11.0) X10^3/uL RBC 5.60 (4.5-5.9) X10^6/uL Hgb 16.5 (13.5-17.5) g/dL Hct 49.3 (41-53) % MCV 88.1 (80-100) fL MCH 29.5 (26-34) PG MCHC 33.4 (30-36) % RDW 13.8 (11.6-14.8) % Plt Count 214 (150-400) X10^3/uL Neut % (Auto) 85.2 H (50-75) % Lymph % (Auto) 10.3 L (25-40) % [place] % (Auto) 3.9 (3-14) % Eos % (Auto) 0.3 L (2-4) % Baso % (Auto) 0.3 (0-2) % Neut # (Auto) 52992 H (6620-5395) /uL Lymph # (Auto) 1300 (7622-4174) /uL [place] # (Auto) 500 (0-900) /uL Eos # (Auto) 0 (0-450) /uL Baso # (Auto) 0 (0-100) /uL Sodium 137 (137-145) mmol/L Potassium 4.5 (3.4-5.1) mmol/L Chloride 103 (98-107) mmol/L Carbon Dioxide 24 (22-32) mmol/L BUN 15 (9-20) mg/dL Creatinine 1.00 (0.66-1.25) mg/dL Estimated GFR > 60.0 (>60) mL/min BUN/Creatinine Ratio 15.0 (6-22) Glucose 162 H (80-110) mg/dL Calcium 9.8 (8.4-10.2) mg/dL Total Bilirubin 0.9 (0.2-1.3) mg/dL AST 39 (17-59) IU/L ALT 25 (<50) IU/L Alkaline Phosphatase 104 (38-126) U/L Total Protein 7.8 (6.3-8.2) g/dL Albumin 4.7 (3.5-5.0) g/dL Globulin 3.1 (1.7-4.1) g/dL Albumin/Globulin Ratio 1.5 (1.0-2.8) Urine Color Yellow Urine Appearance Clear Urine pH 5.0 (4.5-8.0) Ur Specific [place] >=1.030 H (1.000-1.035) Urine Protein Trace H (Negative) Urine Glucose (UA) Negative (Negative) g/dL Urine Ketones Trace H (NEGATIVE) Urine Occult Blood 3+ H (Negative) Urine Nitrate Negative (Negative) Urine Bilirubin Negative (NEGATIVE) Urine Urobilinogen 0.2 (0.2) E.U./dL Ur Leukocyte Esterase Negative (NEGATIVE) Urine RBC 10-30/hpf H (0-5/HPF) Urine WBC None seen (0-5/HPF) Ur Squamous Epith Cells 0-1 /hpf (0-5/HPF) Calcium Oxalate Crystal Occasional H Urine Bacteria Few (2-10) H (None) Urine Mucus 1+ H (Negative) Ur Culture Indicated? Cult not indicated Imaging Data CT scan - abdomen/pelvis: Radiologist's Impression: Moderate right hydroureteronephrosis and perinephric/ash ureteral inflammatory changes with obstructing right mid to distal ureteral calculus measuring 6 mm Sign on April 26, 2020 6:13 Alida Oconnell MD [facility] Narrative Medical decision making narrative: 64-year-old gentleman with a 6 mm stone in the distal right ureter causing obstruction. Mildly elevated leukocytosis without evidence of sepsis. Pain has been relatively easy to control with 15 mg of Toradol and a single mg of Dilaudid along with a L of fluid. Urinalysis does not look like it is infected. At this point, he has pain medication as well as Flomax at home as prescribed by Dr. Banuelos. Will ask him to schedule an appointment with Dr. Hicks to make sure that he is able to completely pass the stone without additional intervention. He is safe for home discharge. Discharge Plan Departure Patient Disposition: Home Clinical Impression: Ureterolithiasis Instructions: DI for Kidney Stones Activity Restrictions/Additional Instructions: Thank you for coming in today You do have a 6 mm kidney stone in the and portion of your ureter, not quite to your bladder. There does not seem to be significant infection at this time. We were able to get your pain under control fairly easily. You have oxycodone at home and can also take ibuprofen with this simultaneously for overall improved pain control. Your likely going to need to follow-up with a urologist. Dr. Hicks has recently opened an office in [place]. Please call later today to schedule and ER follow up appointment. If you are able to pass this stone, you may not need to see him. Please continue the flomax that Dr Banuelos gave you yesterday. If you get to the point where your pain is unable to be controlled at home, you will need to return to the emergency department. If you have fevers, chills enter generally feeling worse you also need to return to the emergency department. If an infection develops up in your kidney behind that stone, you will need to have a stent placed to allow the kidney to drain. Prescriptions: No Action carvedilol 3.125 mg tablet 3.125 mg PO BID RF: 0 lisinopril 2.5 mg tablet 2.5 mg PO DAILY RF: 0 Eliquis 5 mg tablet 5 mg PO BID RF: 0 Referrals: Kyle Banuelos MD [Primary Care Provider] -
--- NOTE | 2020-04-26 05:33 | DI.CT.S_ITS ---
PROCEDURE: CT KIDNEY URETER BLADDER (KUB) INDICATIONS: right flank pain TECHNIQUE: Noncontrast 5 mm thick sections acquired from the diaphragms to the symphysis. 5 mm thick coronal and sagittal reformats were then performed. For radiation dose reduction, the following was used: automated exposure control, adjustment of mA and/or kV according to patient size. COMPARISON: None. FINDINGS: Image quality: Excellent. Lung bases: Lung bases are clear. Heart size is normal. Moderate hiatal hernia. Urinary system: Right kidney: Moderate hydronephrosis. Numerous small nonobstructing stones. Right ureter: Moderately dilated to the level of S2, where there is a obstructing 7 mm stone. Left kidney: 3 mm non-obstructing upper pole stone, faint calcifications elsewhere. No hydronephrosis. Left ureter: Unremarkable. Bladder: Mild diffuse bladder wall thickening. No bladder stones. Prostate enlargement. Other solid organs: Liver is normal in size. Gallbladder is unremarkable . Pancreas is normal in contours. Spleen is normal in size. No adrenal nodules. Peritoneum and bowel: Unenhanced bowel loops demonstrate normal wall thickness and caliber. No free fluid or air. Nodes and vessels: No retroperitoneal or mesenteric adenopathy by size criteria. Aorta and inferior vena cava are normal in caliber. Abdominal wall: Umbilical hernia containing fat. Pelvis: No free pelvic fluid. Small bilateral inguinal hernias containing fat. Bones: No suspicious bony lesions. No vertebral body compression fractures. IMPRESSION: 1. A 7 mm stone obstructs the right ureter at approximately S2. This results in moderate right hydronephrosis. 2. Numerous small nonobstructing right renal stones. Left renal stone and tiny calcifications. 3. Prostate enlargement, mild bladder wall thickening. 4. Moderate hiatal hernia. 5. Bilateral inguinal hernias and umbilical hernia containing fat. Comment: Final report is concordant with preliminary interpretation provided by [facility]. Dictated by: Hugh Leiva M.D. on 04/26/2020 at 8:22 Approved by: Hugh Leiva M.D. on 04/26/2020 at 8:29
[2020-04-26] MEDS: HYDROMORPHONE 0.5 MG INJ IV ×2 (05:40→06:01)
[2020-04-26] MEDS: SODIUM CHLORIDE 0.9% 1,000 ML 1000 ML IV (05:40)
[2020-04-26] MEDS: ONDANSETRON 4 MG/2 ML INJ IV (05:41)
[2020-04-26] MEDS: KETOROLAC 60 MG/2 ML VIAL 15 MG IV (05:41)
[2020-04-26 05:44] LABS: Add Manual Diff / Slide Review NO; Basophils Absolute Auto 0 /uL (0-100); Basophils Percent Auto 0.3 % (0-2); Eosinophils Absolute Auto 0 /uL (0-450); Eosinophils Percent Auto 0.3 % (2-4); Hematocrit 49.3 % (41-53); Hemoglobin 16.5 g/dL (13.5-17.5); Lymphocytes Absolute Auto 1300 /uL (1100-4500); Lymphocytes Percent Auto 10.3 % (25-40); Mean Corpuscular HGB Conc 33.4 % (30-36); Mean Corpuscular Hemoglobin 29.5 PG (26-34); Mean Corpuscular Volume 88.1 fL (80-100); Monocytes Absolute Auto 500 /uL (0-900); Monocytes Percent Auto 3.9 % (3-14); Neutrophils Absolute Auto 11000 /uL (1500-7000); Neutrophils Percent Auto 85.2 % (50-75); Platelet Count 214 X10^3/uL (150-400); Red Cell Distribution Width 13.8 % (11.6-14.8); White Blood Cell Count 12.9 X10^3/uL (4.5-11.0)
[2020-04-26 05:51] LABS: Alanine Aminotransferase 25 IU/L (<50); Albumin 4.7 g/dL (3.5-5.0); Albumin Globulin Ratio 1.5 (1.0-2.8); Alkaline Phosphatase 104 U/L (38-126); Aspartate Aminotransferase 39 IU/L (17-59); Bilirubin Total 0.9 mg/dL (0.2-1.3); Blood Urea Nitrogen 15 mg/dL (9-20); Calcium 9.8 mg/dL (8.4-10.2); Carbon Dioxide 24 mmol/L (22-32); Chloride 103 mmol/L (98-107); Estimated Glomerular Filt Rate > 60.0 mL/min (>60); Globulin 3.1 g/dL (1.7-4.1); Glucose 162 mg/dL (80-110); HEMOLYSIS 45 (0-50); Potassium 4.5 mmol/L (3.4-5.1); Sodium 137 mmol/L (137-145); Total Protein 7.8 g/dL (6.3-8.2)
[2020-04-26 06:39] LABS: WBC Urine None Seen (0-5/HPF)
[2020-04-26 06:41] LABS: Appearance Urine UA CLEAR; Bilirubin Urine UA NEGATIVE (NEGATIVE); Color Urine UA YELLOW; Glucose Urine UA NEGATIVE (Negative); Ketones Urine UA TRACE (NEGATIVE); Leukocyte Esterase Urine UA NEGATIVE (NEGATIVE); Nitrite Urine UA NEGATIVE (Negative); Occult Blood Urine UA 3+ (Negative); Protein Urine UA TRACE (Negative); Specific Gravity Urine UA >=1.030 (1.000-1.035); Urobilinogen Urine UA 0.2 E.U./dL (0.2)
[2020-04-26 06:47] LABS: Bacteria Urine Few (2-10); Calcium Oxalate Crystals Urine Occasional; Mucus Urine 1+ (Negative); RBC Urine 10-30/HPF (0-5/HPF); Squamous Epithelial Cell Urine 0-1 /HPF (0-5/HPF)
[2020-04-26 06:48] LABS: Culture Indicated Urine Cult Not Indicated
== END 2020-04-26 07:00 | disposition home or self-care (01) ==
PROVIDERS: Emergency Provider Emergency Medicine; PCP Internal Medicine
DX: N20.2 Calculus of kidney with calculus of ureter (principal); Z87.442 Personal history of urinary calculi; I10 Essential (primary) hypertension; E78.5 Hyperlipidemia, unspecified; D72.829 Elevated white blood cell count, unspecified
CPT/HCPCS: 36415; 74176; 80053; 81001; 85025; 96361; 96374; 96375; 96376; 99284; J1170; J1885; J2405

== ENCOUNTER → 2020-05-09 14:50 | Outpatient (CLI) | payer OTHER, SELFPAY ==
--- NOTE | 2020-05-09 14:52 | DI.RAD.S_ITS ---
PROCEDURE: XR KUB INDICATIONS: kidney stones TECHNIQUE: One view of the abdomen acquired. COMPARISON: [facility], CT, CT KIDNEY URETER BLADDER (KUB), 04/26/2020, 5:38. FINDINGS: Surgical changes and devices: None. Bowel: Bowel gas pattern is normal. Soft tissues: Multiple calcifications are noted overlying the renal shadows appearing relatively unchanged compared to prior exam. Previous calcification identified within the distal right ureter is not definitively identified. Visualized solid organ contours appear normal in size. Bones: No suspicious bony lesions. IMPRESSION: Stable calcifications overlying the kidneys. Nonvisualization of calcification previously identified within the right ureter. Dictated by: Elzbieta Kirk M.D. on 05/09/2020 at 17:54 Approved by: Elzibeta Kirk M.D. on 05/09/2020 at 17:54
== END ==
PROVIDERS: PCP Internal Medicine; Referring Provider Specialist; Visit Provider Specialist
DX: N20.0 Calculus of kidney (principal)
CPT/HCPCS: 74018

== ENCOUNTER → 2020-05-11 08:43 | Outpatient (CLI) | payer OTHER, SELFPAY ==
[2020-05-26 11:01] LABS: Ca oxalate monohydr 70%; Size 6X5 mm
[2020-05-26 11:02] LABS: Ca oxalate dihydrate 30%; Photo SEE EMR
== END ==
PROVIDERS: PCP Internal Medicine; Visit Provider Specialist
DX: N20.0 Calculus of kidney (principal)
CPT/HCPCS: 82365

== ENCOUNTER → 2020-06-14 16:43 | Outpatient (CLI) | payer OTHER, SELFPAY ==
--- NOTE | 2020-06-14 16:45 | DI.RAD.S_ITS ---
PROCEDURE: XR KUB INDICATIONS: Kidney stone TECHNIQUE: One view of the abdomen acquired. COMPARISON: [facility], CT, CT KIDNEY URETER BLADDER (KUB), 04/26/2020, 5:38. Located [facility], CR, XR KUB, 05/09/2020, 14:46. FINDINGS: Surgical changes and devices: None. Bowel: Bowel gas pattern is normal. Soft tissues: Several small punctate calcifications seen bilaterally. Visualized solid organ contours appear normal in size. Bones: No suspicious bony lesions. IMPRESSION: Several punctate small calcifications seen projected over the right and left kidneys bilaterally similar to prior CT scan dated 04/26/2020. Dictated by: Marino Cisneros RRA Interpreted: Nayan Ng MD on 06/14/2020 at 17:17 Approved by: Nayan Ng M.D. on 06/14/2020 at 17:21
== END ==
PROVIDERS: PCP Internal Medicine; Referring Provider Specialist; Visit Provider Specialist
DX: N20.0 Calculus of kidney (principal)
CPT/HCPCS: 74018

== ENCOUNTER → 2020-06-18 09:19 | Outpatient (CLI) | payer OTHER, SELFPAY ==
[2020-06-19 14:19] LABS: COVID19 Sendout Not Detected (Not Detect)
== END ==
PROVIDERS: PCP Internal Medicine; Visit Provider Physician Assistant
DX: Z11.59 Encounter for screening for other viral diseases (principal)
CPT/HCPCS: 87635

== ENCOUNTER 2020-06-21 07:32 | Day surgery (SDC) | payer OTHER, SELFPAY ==
[2020-06-21] VITALS (7 sets, daily range): BP systolic 122–141; BP diastolic 75–86; PULSE 59–67; RESP 10–17; TEMP 36.4–37.5; O2SAT 91–97; BMI 28.8
--- NOTE | 2020-06-21 | PATH_ITS ---
[facility] Accession Number: [id number] . 01 Material submitted: . sigmoid colon - SIGMOID POLYP . 01 Clinical history: . DX COLONOSCOPY W/POSS BX . 02 Diagnosis: Sigmoid Colon, Polyp, Biopsy: Tubular adenoma. MRV 06/23/2020 1039 Local . 02 Electronically signed: . Evy Phelan MD, Pathologist NPI- [id number] . 01 Gross description: . SIGMOID POLYP: Received in formalin are 2 fragment(s) of richards, soft tissue measuring 0.3 x 0.3 x 0.2 cm to 0.4 x 0.3 x 0.2 cm submitted entirely in 1 cassette(s) /JOSH 06/22/20202045 Local . 02 Pathologist provided ICD-10: D12.5 . 02 CPT . 057768 Performed at: 01 [facility] [address] [facility], [place], [place] [id number] MD Vishal Cervantes MD Phone: [phone] Performed at: [address] [facility] [address] [place], [place] [id number] MD Evy Phelan MD Phone: [phone]
[2020-06-21] MEDS: SODIUM CHLORIDE 0.9% 1,000 ML 150 ML IV (07:42)
[2020-06-21] MEDS: fentaNYL 250 MCG/5 ML INJ IV (08:45)
[2020-06-21] MEDS: MIDAZOLAM 5 MG/5 ML VIAL IV (08:52)
--- NOTE | 2020-06-21 09:01 | PM.HP.1 ---
History of Present Illness History of Present Illness Date Patient Seen: 06/21/20 Chief complaint: DX COLONOSOCPY W/POSS BX Narrative: Rectal bleeding on Eliquis Patient History Medical History (Updated 05/11/20 @ 00:00 by ) Atrial fibrillation and flutter (Acute) Bilateral nephrolithiasis (Acute) History of nephrolithiasis (Acute) Hyperlipidemia (Acute) Hypertension (Acute) Family & Social History Social History: household members spouse Tobacco & Substance use: Smoking Status Never smoker alcohol intake current alcohol intake frequency a few times a week Substance Use Type does not use Meds Home Medications and Allergies Home Medications Medication Instructions Recorded Confirmed Type carvedilol 3.125 mg tablet 3.125 mg PO BID 01/19/20 06/21/20 History lisinopril 2.5 mg tablet 2.5 mg PO DAILY 01/19/20 06/21/20 History tamsulosin 0.4 mg capsule 0.4 mg PO BEDTIME #90 cap 04/27/20 06/21/20 Rx atorvastatin See Rx Instructions .ROUTE .COMPLEX 06/21/20 06/21/20 History Allergies Allergy/AdvReac Type Severity Reaction Status Date / Time No Known Drug Allergies Allergy Verified 06/21/20 07:43 Exam Vital Signs (past 8 hours): - 06/21/20 07:47 Temperature 98.5 F Pulse Rate 67 Respiratory Rate 16 Blood Pressure 141/86 H Pulse Oximetry 97 Oxygen Delivery Method Room Air Narrative Exam Narrative: Oropharynx free of lesions Chest clear to auscultation percussion Cardiac exam reveals no S3 or murmur Assessment & Plan Assessment & Plan narrative: Rectal bleeding on Eliquis. Need for colonoscopy for diagnosis. Risks, benefits, alternatives have been explained.
--- NOTE | 2020-06-21 09:02 | PM.OP.ENDO ---
Operative Date/Time/Diagnoses Date of procedure: 06/21/20 Pre-op diagnosis: See indication and findings Procedure & Clinicians Study performed: Colonoscopy Same procedure as scheduled: Yes Indications: Rectal bleeding on Eliquis Surgeon: Grant Bray Procedure Notes Procedure in detail: After informed consent was obtained the patient was placed in left lateral decubitus position. The video colonoscope was introduced the rectum slowly advanced cecum. On slow withdrawal mucosa was carefully examined. The scope was removed. The patient tolerated procedure well. Blood loss none Complications none Sedation Total sedation time 14 minutes Fentanyl 100 micro g Versed 5 mg IV titration Findings 1. 5 mm polyp in the sigmoid colon Jumbo biopsy removed completely 2. Mild internal hemorrhoids 3. Otherwise negative colonoscopy to cecum. Will follow up on the biopsy results but if adenomatous he will need follow-up in 7-10 years. I suspect that his bleeding was from his hemorrhoids while on Eliquis.
== END 2020-06-21 10:09 | disposition home or self-care (01) ==
PROVIDERS: PCP Internal Medicine; Referring Provider Internal Medicine; Visit Provider Internal Medicine Gastroenterology
PROC: 0DJD8ZZ Inspection of Lower Intestinal Tract, Via Natural or Artificial Opening Endoscopic (ICD-10-PCS; CPT 45378; principal; 2020-06-21 08:30)
DX: D12.5 Benign neoplasm of sigmoid colon (principal); Z79.01 Long term (current) use of anticoagulants; K64.8 Other hemorrhoids
CPT/HCPCS: 45380; J2250; J3010

== ENCOUNTER 2020-10-01 09:06 | Emergency (ER) | payer OTHER, SELFPAY ==
[2020-10-01 09:21] VITALS: BP 171/86; PULSE 62; RESP 18; TEMP 37.1; O2SAT 97
--- NOTE | 2020-10-01 09:21 | ED_ITS ---
HPI - Extremity Problem General Chief complaint: Extremity Problem,Nontraumatic Stated complaint: right knee pain/swelling since 09/04 Time Seen by Provider: 10/01/20 09:10 Source: patient and family Mode of arrival: Ambulatory Limitations: no limitations History of Present Illness HPI Narrative: 64-year-old male nonsmoker with history of hypertension, hyperlipidemia presents with his in the chief complaint of ongoing right knee trouble for about the past month. He denies any specific injury but states he started having pain about a month ago which started about 4 days after a hike. The primary location of the pain is on the medial joint line of his right knee. He has seen his primary care provider for this and was given some home exercises to try and help. He denies any significant overuse or popping or clicking in his knee. This morning he noted swelling in his knee and also some in his ankle. He denies any redness or particular warmth. He denies any history of blood clot. He denies any history of gouty arthritis. The pain is sharp and stabbing, worse with motion, improves with rest. MD Complaint: extremity pain, extremity swelling, joint swelling and joint paint Onset (ago): week(s) Pain Consistency: constant Location: right Quality: stabbing and sharp Radiation: none Relieving factors: rest Exacerbating factors: range of motion, weight bearing and walking Associated symptoms: denies other symptoms Related Data Home Medications Medication Instructions Recorded Confirmed carvedilol 3.125 mg tablet 3.125 mg PO BID 01/19/20 09/12/20 lisinopril 2.5 mg tablet 2.5 mg PO DAILY 01/19/20 09/12/20 atorvastatin See Rx Instructions .ROUTE .COMPLEX 06/21/20 09/12/20 Previous Rx's Medication Instructions Recorded tamsulosin 0.4 mg capsule 0.4 mg PO BEDTIME #90 cap 04/27/20 ketorolac 10 mg PO Q6H PRN #14 tab 10/01/20 Allergies Allergy/AdvReac Type Severity Reaction Status Date / Time No Known Drug Allergies Allergy Verified 10/01/20 09:25 Review of Systems Constitutional Constitutional: Denies chills, Denies fatigue, Denies fever(s), Denies frequent falls, Denies lethargy and Denies weakness Eyes Eyes: Denies change in vision, Denies eye discharge, Denies irritation and Denies loss of vision ENT Ears, Nose, Mouth, and Throat: Denies change in voice, Denies dizziness, Denies neck pain, Denies sore throat and Denies throat swelling Cardiovascular Cardiovascular: Denies chest pain, Denies irregular heart rhythm, Denies lightheadedness, Denies palpitations, Denies dyspnea, Denies dyspnea on exertion and Denies orthopnea Respiratory Respiratory: Denies cough, Denies dyspnea, Denies dyspnea on exertion and Denies wheezing Gastrointestinal Gastrointestinal: Denies abdominal pain, Denies change in bowel habits, Denies diarrhea, Denies nausea and Denies vomiting Musculoskeletal Musculoskeletal: Reports arthralgias, Reports joint swelling, Denies neck pain and Denies numbness Integumentary/Breasts Skin/Breast: Denies pruritus, Denies erythema, Denies rash and Denies wounds Neurologic Neurologic: Denies behavioral changes, Denies confusion, Denies dizziness, Denies frequent falls, Denies loss of vision, Denies numbness and Denies weakness Psychiatric Psychiatric: Denies anxiety, Denies behavioral changes, Denies confusion, Denies depression, Denies homicidal ideation and Denies suicidal ideation Endocrine Endocrine: Denies fatigue, Denies flushing and Denies palpitations Hematologic/Lymphatic Hematologic/Lymphatic: Denies easy bruising Allergic/Immunologic Allergic/Immunologic: Denies urticaria, Denies throat swelling and Denies wheezing Patient History Medical History Atrial fibrillation and flutter Bilateral nephrolithiasis Bilateral nephrolithiasis BPH w urinary obs/LUTS Calcium nephrolithiasis Elevated PSA History of nephrolithiasis Hyperlipidemia Hypertension Social History household members: spouse Smoking Status: Never smoker alcohol intake: current Smoking Status: Never smoker alcohol intake frequency: a few times a week Substance Use Type: does not use Exam Narrative Exam Narrative: GEN: AOx3 and in mild distress EYES: Pupils are equal, round, and reactive to light and accommodation. Extraoccular muscles are intact bilaterally. There is no subconjunctival hemorrhage or exudate. CHEST: Lungs are clear to auscultation bilaterally and free of wheezes, rales, or rhonchi. Heart rate is regular rhythm, there are no murmurs, clicks, rubs, or gallops. There is no chest wall tenderness. ABD: Abdomen is soft and nontender. There is no guarding or rebound. Bowel sounds are normal in all 4 quadrants. There is no mass or organomegaly. EXT: Full but painful range of motion of right knee, no erythema or significant warmth. Mild effusion, pain on palpation of medial joint line left knee. No obvious ligamentous instability SKIN: Warm, pink, and dry. No erythema or rash Initial Vital Signs Initial Vital Signs: Vital Signs Temperature 98.7 F 10/01/20 09:21 Pulse Rate 62 10/01/20 09:21 Respiratory Rate 18 10/01/20 09:21 Blood Pressure 171/86 H 10/01/20 09:21 Pulse Oximetry 97 10/01/20 09:21 Procedures Joint Aspiration Joint Asp./Inject. 1: Time Out Performed: Yes Side of body: right Joint Aspirated: knee Ultrasound Guidance: No Skin Prep: Chlorhexidine Local Anesthetic: bupivacaine 0.25% Needle Size Used: 22G Additional Comments: no fluid obtained Course Orders Ordered: ED Orders 10/01/20 09:33 XR knee RT 3V Stat 10/01/20 09:58 C-Reactive Protein Quant Stat Complete Blood Count AUTO DIFF Stat D Dimer Stat Erythrocyte Sedimentation Rate Stat Uric Acid Stat Discontinued Medications Bupivacaine HCl (Bupivacaine 0.5% (Pf) Vial) 5 ml SUBCUT NOW ONE Stop: 10/01/20 09:34 Last Admin: 10/01/20 09:36 Dose: 5 ml Documented by: KODAK Vital Signs Vital signs: Vital Signs - 8 hr 10/01/20 09:21 10/01/20 10:45 Temperature 98.7 F Pulse Rate 62 56 L Respiratory Rate 18 18 Blood Pressure 171/86 H 159/85 H Pulse Oximetry 97 97 MDM - Extremity (Nontraumatic) Lab Data Result diagrams: 10/01/20 09:58 Labs: Lab Results 10/01/20 10/01/20 10/01/20 Range/Units 09:58 09:58 09:58 WBC 6.6 (4.5-11.0) X10^3/uL RBC 5.40 (4.5-5.9) X10^6/uL Hgb 15.7 (13.5-17.5) g/dL Hct 46.7 (41-53) % MCV 86.4 (80-100) fL MCH 29.1 (26-34) PG MCHC 33.6 (30-36) % RDW 13.8 (11.6-14.8) % Plt Count 207 (150-400) X10^3/uL Neut % (Auto) 65.2 (50-75) % Lymph % (Auto) 20.7 L (25-40) % Ocean % (Auto) 10.7 (3-14) % Eos % (Auto) 2.7 (2-4) % Baso % (Auto) 0.7 (0-2) % Neut # (Auto) 4300 (1119-9476) /uL Lymph # (Auto) 1400 (9058-6370) /uL Ocean # (Auto) 700 (0-900) /uL Eos # (Auto) 200 (0-450) /uL Baso # (Auto) 0 (0-100) /uL ESR 1 (0-15) MM/HR D-Dimer < 200 (<230) ng/mL Uric Acid 3.9 (3.5-8.5) mg/dL C-Reactive Protein < 0.5 (<1.0) mg/dL Imaging Data Extremity x-ray #1: Attestation: I personally reviewed and interpreted this imaging study as follows: My Impression: NAP MDM Narrative Medical decision making narrative: Septic arthritis considered, but thought unlikely due to olvera of redness, pain with passive ROM, fever. Gout considered but thought unlikely given lack of history, presentation, lack of erythema. Most likely cause is effusion from soft tissue injury. Return precautions given, encouragement to follow with primary care provider for ongoing evaluation, possible PT versus MRI or other. Questions answered to his apparent satisfaction Discharge Plan Departure Patient Disposition: Home Clinical Impression: Acute knee pain Qualifiers: Laterality: right Qualified Code(s): M25.561 - Pain in right knee Instructions: DI for Knee Pain Activity Restrictions/Additional Instructions: *You have been diagnosed with [right knee pain with mild effusion. Labs are very reassuring. X-ray shows no fracture or dislocation.] *What to do: *Take medications as directed: Your prescription for Toradol was electronically transmitted to [facility] in [place] *Follow up with your primary care provider in 2-3 days, call for an appointment. Let them know you were seen in the Emergency Department and that we ask that you be seen in follow up *Return to ER if you should have any new, worsening or concerning symptoms Prescriptions: New ketorolac 10 mg tablet 10 mg PO Q6H PRN (Reason: pain) Qty: 14 RF: 0 No Action carvedilol 3.125 mg tablet 3.125 mg PO BID RF: 0 lisinopril 2.5 mg tablet 2.5 mg PO DAILY RF: 0 tamsulosin 0.4 mg capsule 0.4 mg PO BEDTIME Qty: 90 RF: 3 atorvastatin 10 mg Tablet See Rx Instructions .ROUTE .COMPLEX RF: 0 Referrals: Kyle Banuelos MD [Primary Care Provider] - Eliud Armando MD [Physician] -
--- NOTE | 2020-10-01 09:33 | DI.RAD.S_ITS ---
PROCEDURE: XR KNEE RT 3V INDICATIONS: pain, swelling, no obvious injury TECHNIQUE: 3 views of the knee were acquired. COMPARISON: None. FINDINGS: Bones: No fractures or dislocations. No suspicious bony lesions. Mild, age-appropriate degenerative changes are seen. Soft tissues: There is a mild joint effusion. No suspicious soft tissue calcifications. IMPRESSION: Mild joint effusion. Normal appearing bones for age. If there is strong clinical suspicion for internal derangement of the knee, please consider a dedicated, scheduled MRI for further evaluation (assuming that there is no contraindication to MRI). Dictated by: John Mcqueen M.D. on 10/01/2020 at 8:45 Approved by: John Mcqueen M.D. on 10/01/2020 at 8:45
[2020-10-01] MEDS: BUPIVACAINE 0.5% (PF) VIAL 5 ML SUBCUT (09:36)
--- NOTE | 2020-10-01 09:37 | PC.NURSE ---
bupivicaine given by provider
[2020-10-01 10:10] LABS: Add Manual Diff / Slide Review NO; Basophils Absolute Auto 0 /uL (0-100); Basophils Percent Auto 0.7 % (0-2); Eosinophils Absolute Auto 200 /uL (0-450); Eosinophils Percent Auto 2.7 % (2-4); Hematocrit 46.7 % (41-53); Hemoglobin 15.7 g/dL (13.5-17.5); Lymphocytes Absolute Auto 1400 /uL (1100-4500); Lymphocytes Percent Auto 20.7 % (25-40); Mean Corpuscular HGB Conc 33.6 % (30-36); Mean Corpuscular Hemoglobin 29.1 PG (26-34); Mean Corpuscular Volume 86.4 fL (80-100); Monocytes Absolute Auto 700 /uL (0-900); Monocytes Percent Auto 10.7 % (3-14); Neutrophils Absolute Auto 4300 /uL (1500-7000); Neutrophils Percent Auto 65.2 % (50-75); Platelet Count 207 X10^3/uL (150-400); Red Cell Distribution Width 13.8 % (11.6-14.8); White Blood Cell Count 6.6 X10^3/uL (4.5-11.0)
[2020-10-01 10:19] LABS: Uric Acid 3.9 mg/dL (3.5-8.5)
[2020-10-01 10:23] LABS: C-Reactive Protein Quant < 0.5 mg/dL (<1.0); D Dimer < 200 ng/mL (<230)
[2020-10-01 10:25] LABS: Erythrocyte Sedimentation Rate 1 MM/HR (0-15)
[2020-10-01 10:45] VITALS: BP 159/85; PULSE 56; RESP 18; O2SAT 97
== END 2020-10-01 10:55 | disposition home or self-care (01) ==
PROVIDERS: Emergency Provider Emergency Medicine; PCP Internal Medicine
DX: M25.561 Pain in right knee (principal); M25.461 Effusion, right knee
CPT/HCPCS: 20610; 36415; 73562; 84550; 85025; 85379; 85651; 86140; 96372; 99283; 99284

== ENCOUNTER → 2021-10-25 07:04 | Outpatient (CLI) | payer OTHER, SELFPAY ==
--- NOTE | 2021-10-25 | DI.CT.S_ITS ---
PROCEDURE: CT ABDOMEN PELVIS W CON INDICATIONS: ABDOMINAL PAIN TECHNIQUE: After the administration of oral and intravenous contrast, axial sections were acquired from the lung bases to the pubic symphysis. Coronal and sagittal reformats were performed. For radiation dose reduction, the following was used: automated exposure control, adjustment of mA and/or kV according to patient size. COMPARISON:None. FINDINGS: Image quality: Excellent. Lung bases: Unremarkable. Heart: No significant findings. ABDOMEN: Liver: Unremarkable. Gallbladder: Is within normal limits Biliary ducts: Unremarkable. Pancreas: Unremarkable. Spleen: Unremarkable. Adrenal Glands: Unremarkable. Kidneys and Ureters: Nonobstructing bilateral right greater than left renal calculi, measuring less than 5 mm diameter. Stomach and Bowel: Stomach and small bowel grossly unremarkable. Diverticulosis of the descending and sigmoid colon. Mild fat stranding surrounds the distal descending and sigmoid colon. No pericolonic abscess. Normal appendix. Peritoneum: No abnormal intraperitoneal fluid. No free air. Ventral Wall: No hernia. Abdominal Nodes: No retroperitoneal or mesenteric adenopathy by size criteria. Vessels: Aorta and inferior vena cava are normal in size. PELVIS: Pelvic Organs: Unremarkable. Bladder: Prostate is enlarged and indents the urinary bladder base, limiting evaluation for wall thickening. Pelvic Nodes: No enlarged lymph nodes. Miscellaneous: No inguinal hernias are seen. Bones: Unremarkable. IMPRESSION: 1. Diverticulitis of the descending/sigmoid colon. No pericolonic abscess. 2. Normal appendix. 3. Prostate enlargement with consequent indentation of the urinary bladder base and suboptimal evaluation for inferior urinary bladder wall thickening. This could be further assessed with cystoscopy, if clinically indicated. 4. Nonobstructing bilateral renal calculi. Dictated by: Yodit Trimble M.D. on 10/25/2021 at 8:24 Approved by: Yodit Trimble M.D. on 10/25/2021 at 8:30
== END ==
PROVIDERS: PCP Internal Medicine; Referring Provider Internal Medicine; Visit Provider Internal Medicine
DX: R10.9 Unspecified abdominal pain (principal); R63.4 Abnormal weight loss; K57.30 Diverticulosis of large intestine without perforation or abscess without bleeding; N40.0 Benign prostatic hyperplasia without lower urinary tract symptoms; N20.0 Calculus of kidney
CPT/HCPCS: 74177; Q9967

== ENCOUNTER → 2021-10-30 15:51 | Outpatient (CLI) | payer OTHER, SELFPAY | PROVIDERS: PCP Internal Medicine; Referring Provider Specialist; Visit Provider Specialist | DX: R97.20 Elevated prostate specific antigen [PSA] (principal) | CPT/HCPCS: 36415; 84153 ==

== ENCOUNTER → 2021-11-21 07:06 | Outpatient (CLI) | payer OTHER, SELFPAY ==
--- NOTE | 2021-11-21 07:08 | DI.US.S_ITS ---
PROCEDURE: US ABDOMEN LIMITED INDICATIONS: POSSIBLE GALLSTONES TECHNIQUE: Real-time focused scanning was performed of the abdomen, with image documentation. COMPARISON: None. FINDINGS: The liver measures 13.2 cm. There is normal echotexture of the liver. The gallbladder is within normal limits. No gallbladder wall thickening or pericholecystic fluid. The common bile duct is 4.6 mm. No intrahepatic biliary ductal dilatation. The pancreas is well visualized and unremarkable. IMPRESSION: No cholelithiasis. No ultrasound abnormality seen in the right upper quadrant. Dictated by: Aureliano Bustamante M.D. on 11/21/2021 at 8:10 Approved by: Aureliano Bustamante M.D. on 11/21/2021 at 8:10
== END ==
PROVIDERS: PCP Internal Medicine; Referring Provider Surgery; Visit Provider Surgery
DX: R10.13 Epigastric pain (principal)
CPT/HCPCS: 76705

== ENCOUNTER 2021-12-06 11:09 | Day surgery (SDC) | payer OTHER, SELFPAY ==
--- NOTE | 2021-12-06 | PATH_ITS ---
[facility] Accession Number: [id number] . 01 Material submitted: . PART A: duodenum - DUODNEUM X2 PART B: stomach - ANTRUM X4 PART C: esophagus, E-G Junction - GE JUNCTION X4 . 02 Diagnosis: A. Duodenum, Biopsy: Small bowel with no diagnostic abnormality. Negative for active inflammation, features of sprue, dysplasia, or malignancy. . B. Stomach, Antrum, Biopsies: Antral mucosa with mild chronic gastritis.. Negative for Helicobacter by immunohistochemistry. Negative for intestinal metaplasia. Negative for dysplasia and malignancy. . C. Gastroesophageal Junction, Biopsy: Ulcerated squamous mucosa. No obvious fungal organisms identified on H/E stain. Intraepithelial eosinophils are not increased. Negative for dysplasia and malignancy. . [facility] 12/11/2021 1641 Local . 02 Electronically signed: . Evy Phelan MD, Pathologist NPI- [id number] . 01 Gross description: . Part A: DUODNEUM X2: Received in formalin is 1 fragment(s) of richards, soft tissue measuring 0.4 x 0.3 x 0.3 cm submitted entirely in 1 cassette(s) Part B: ANTRUM X4: Received in formalin are 2 fragment(s) of richards, soft tissue measuring 0.4 x 0.4 x 0.3 cm to 0.4 x 0.3 x 0.2 cm submitted entirely in 1 cassette(s) Part C: GE JUNCTION X4: Received in formalin are multiple fragment(s) of richards, soft tissue measuring 0.7 x 0.2 x 0.1 cm in aggregate submitted entirely in 1 cassette(s) /[facility] 12/09/2021 1842 Local . 02 Microscopic: . B. An immunohistochemical stain was performed to evaluate for Helicobacter organisms and is negative. The control stain showed appropriate reactivity. . * This test was developed and its performance characteristics determined by [facility]. It has not been cleared or approved by the U.S. Food and Drug Administration. The FDA has determined that such clearance or approval is not necessary. This test is used for clinical purposes. It should not be regarded as investigational or for research. . 02 Pathologist provided ICD-10: R10.13 . 02 CPT . 268006, 666020, 385548, D64709 Specimen Comment: A courtesy copy of this report has been sent to [phone] Performed at: 01 [facility] Cyt[facility] [address] [place] [address], [place], [place] [id number] MD Vishal Cervantes MD Phone: [phone] Performed at: 02 [facility] [address] [place] [id number] MD Evy Phelan MD Phone: [phone]
[2021-12-06 11:35] VITALS: BP 159/85; PULSE 56; RESP 15; TEMP 36.2; O2SAT 98; BMI 27.2
[2021-12-06] MEDS: LACTATED RINGERS 1,000 ML 42 ML IV (11:40)
[2021-12-06 11:50] LABS: COVID19 -Nasal RAPID Negative (Negative)
--- NOTE | 2021-12-06 11:53 | PM.HP.1 ---
History of Present Illness History of Present Illness Date Patient Seen: 12/06/21 Time Patient Seen: 11:53 Chief complaint: EGD Narrative: 66-year-old man with dyspepsia. See office note from November 07 for details. Had his ultrasound which showed no gallstones. Patient History Medical History Atrial fibrillation and flutter Bilateral nephrolithiasis Bilateral nephrolithiasis BPH w urinary obs/LUTS Calcium nephrolithiasis Elevated PSA History of nephrolithiasis Hyperlipidemia Hypertension Family & Social History Social History: household members spouse Tobacco & Substance use: Smoking Status Never smoker alcohol intake current alcohol intake frequency a few times a week Substance Use Type does not use Meds Home Medications and Allergies Home Medications Medication Instructions Recorded Confirmed Type carvedilol 3.125 mg tablet 3.125 mg PO BID 01/19/20 11/07/21 History lisinopril 2.5 mg tablet 2.5 mg PO DAILY 01/19/20 11/07/21 History atorvastatin 10 mg tablet See Rx Instructions .ROUTE .COMPLEX 06/21/20 12/06/21 History tamsulosin 0.4 mg capsule 0.4 mg PO BEDTIME #30 cap 11/29/21 Rx Allergies Allergy/AdvReac Type Severity Reaction Status Date / Time No Known Drug Allergies Allergy Verified 12/06/21 11:33 Exam Vital Signs (past 8 hours): - 12/06/21 11:35 Temperature 97.2 F L Pulse Rate 56 L Respiratory Rate 15 Blood Pressure 159/85 H Pulse Oximetry 98 Oxygen Delivery Method Room Air Const General: healthy appearing Resp Effort & Inspection: normal respiratory effort GI Palpation: soft Objective Labs Labs: Laboratory Results - last 24 hr 12/06/21 11:22 SARS-CoV-2 (PCR) Negative Assessment & Plan Assessment and plan (1) Dyspepsia: Status: Acute Plan Risks and benefits of EGD reviewed and he would like to proceed. COVID-19 COVID-19 status: Negative Result date/Date tested (Pos, Neg/Pending): 12/06/21 Time Spent With Patient Critical Care time: I spent a total of [] minutes of critical care time on this patient's care today; this time is exclusive of procedural time.
[2021-12-06] MEDS: LIDOCAINE 4% SOLN 50 ML 20 ML TOP (11:55)
[2021-12-06] MEDS: fentaNYL 250 MCG/5 ML INJ IV (12:07)
[2021-12-06] MEDS: MIDAZOLAM 5 MG/5 ML VIAL IV (12:07)
--- NOTE | 2021-12-06 12:13 | PM.OP.EGD ---
Operative Date/Time/Diagnoses Date of procedure: 12/06/21 Time of procedure: 12:13 Pre-op diagnosis: Dyspepsia Post-op diagnosis: same Procedure & Clinicians Study performed: Esophagogastroduodenoscopy Same procedure as scheduled: Yes Surgeon: Sebastian Petty Procedure Notes SCOAP/Timeout: Yes Procedure in detail: A timeout was performed. A bite blocked was placed. The patient was positioned in the left lateral decubitus position. The endoscope was inserted through the bite block and passed through the esophagus and stomach and into the duodenum. The duodenal mucosa appeared normal. Random biopsies were taken from the duodenum. The scope was withdrawn into the duodenal bulb and no abnormalities were noted. The scope was withdrawn into the stomach. There were no ulcerations in the antrum. Random biopsies were taken from the antrum. The rest of the stomach was normal. The scope was retroflexed and a small hiatal hernia was noted. The scope was withdrawn into the esophagus and distal esophagitis was noted. There were some patches of salmon-colored mucosa. Biopsies were taken with forceps from the distal esophagus. The hiatal hernia was roughly 3 cm in length. The remainder of the esophagus was normal. The scope was withdrawn. The patient was awakened and brought to recovery. Sedation minutes: 14 Post-procedure Recommendations: Will call with biopsy results Disposition: PACU
[2021-12-06 12:18] VITALS: BP 122/53; PULSE 55; RESP 14; TEMP 36.4; O2SAT 97
[2021-12-06 12:23] VITALS: BP 120/74; PULSE 53; RESP 10; O2SAT 94
[2021-12-06 12:37] VITALS: BP 120/63; PULSE 51; RESP 15; O2SAT 95
[2021-12-06 12:52] VITALS: BP 117/68; PULSE 52; RESP 15; O2SAT 97
--- NOTE | 2021-12-06 13:07 | SUR.PHASEII ---
Discharge instructions reviewed with , Luana over the phone. she verbalized understanding.
[2021-12-06 13:13] VITALS: BP 135/74; PULSE 51; RESP 15; O2SAT 97
== END 2021-12-06 13:18 | disposition home or self-care (01) ==
PROVIDERS: PCP Internal Medicine; Referring Provider Surgery; Visit Provider Surgery
PROC: 0DJ08ZZ Inspection of Upper Intestinal Tract, Via Natural or Artificial Opening Endoscopic (ICD-10-PCS; CPT 43235; principal; 2021-12-06 12:30)
DX: K29.50 Unspecified chronic gastritis without bleeding (principal); Z20.822 Contact with and (suspected) exposure to COVID-19; K44.9 Diaphragmatic hernia without obstruction or gangrene
CPT/HCPCS: 43239; 87635; 99152; J2250; J3010

== ENCOUNTER → 2022-01-01 15:33 | Outpatient (CLI) | payer OTHER, SELFPAY ==
[2022-01-01 17:24] LABS: Prostate Specific Antigen 5.37 ng/mL (0.10-4.00)
== END ==
PROVIDERS: PCP Internal Medicine; Referring Provider Specialist; Visit Provider Specialist
DX: R97.20 Elevated prostate specific antigen [PSA] (principal)
CPT/HCPCS: 36415; 84153

== ENCOUNTER → 2022-04-25 14:00 | Outpatient (CLI) | payer MEDICARE, OTHER, SELFPAY ==
--- NOTE | 2022-04-25 14:04 | DI.RAD.S_ITS ---
PROCEDURE: XR KUB INDICATIONS: calcium nephrolithiasis TECHNIQUE: One view of the abdomen acquired. COMPARISON: [facility], CR, XR KUB, 06/14/2020, 16:36. FINDINGS: Surgical changes and devices: None. Bowel: Bowel gas pattern is normal. Soft tissues: No suspicious abdominal calcifications. Visualized solid organ contours appear normal in size. Question tiny left upper pole renal calculus. Bones: No suspicious bony lesions. IMPRESSION: Question tiny left upper pole renal calculus. Dictated by: Hugh Leiva M.D. on 04/25/2022 at 17:04 Approved by: Hugh Leiva M.D. on 04/25/2022 at 17:05
[2022-04-25 15:59] LABS: Prostate Specific Antigen 3.98 ng/mL (0.10-4.00)
== END ==
PROVIDERS: Specialist; PCP Internal Medicine; Referring Provider Internal Medicine; Visit Provider Internal Medicine
DX: R97.20 Elevated prostate specific antigen [PSA] (principal); N20.0 Calculus of kidney
CPT/HCPCS: 36415; 74018; 84153

== ENCOUNTER → 2022-08-30 14:31 | Outpatient (CLI) | payer MEDICARE, OTHER, SELFPAY ==
[2022-08-30 15:19] LABS: Hematocrit 46.3 % (41-53); Hemoglobin 15.5 g/dL (13.5-17.5); Mean Corpuscular HGB Conc 33.5 % (30-36); Mean Corpuscular Hemoglobin 29.2 PG (26-34); Mean Corpuscular Volume 87.2 fL (80-100); Platelet Count 196 X10^3/uL (150-400); Red Blood Cell Count 5.31 X10^6/uL (4.5-5.9); Red Cell Distribution Width 13.6 % (11.6-14.8)
[2022-08-30 15:38] LABS: Alanine Aminotransferase 24 IU/L (<50); Albumin 4.2 g/dL (3.5-5.0); Albumin Globulin Ratio 1.4 (1.0-2.8); Alkaline Phosphatase 75 U/L (38-126); Aspartate Aminotransferase 29 IU/L (17-59); BUN Creatinine Ratio 18.6 (6-22); Bilirubin Total 0.7 mg/dL (0.2-1.3); Blood Urea Nitrogen 16 mg/dL (9-20); Calcium 8.8 mg/dL (8.4-10.2); Carbon Dioxide 22 mmol/L (22-32); Chloride 104 mmol/L (98-107); Cholesterol 133 mg/dL (140-199); Estimated Glomerular Filt Rate > 60 mL/min (>60); Glucose 101 mg/dL (80-110); HDL Cholesterol 48 mg/dL (40-60); HEMOLYSIS < 15 (0-50); LDL Cholesterol Calculated 52 mg/dL (<100); Potassium 4.1 mmol/L (3.4-5.1); Sodium 138 mmol/L (137-145); Total Protein 7.2 g/dL (6.3-8.2); Triglycerides 167 mg/dL (35-150)
[2022-08-30 16:09] LABS: TSH w/ Reflex to FT4 1.14 uIU/mL (0.47-4.68)
== END ==
PROVIDERS: PCP Internal Medicine; Referring Provider Internal Medicine; Visit Provider Internal Medicine
DX: E78.2 Mixed hyperlipidemia (principal); I10 Essential (primary) hypertension; Z86.79 Personal history of other diseases of the circulatory system
CPT/HCPCS: 36415; 80053; 80061; 84443; 85027

== ENCOUNTER → 2022-11-04 17:47 | Outpatient (CLI) | payer MEDICARE, OTHER, SELFPAY ==
[2022-11-04 18:52] LABS: Prostate Specific Antigen 4.07 ng/mL (0.10-4.00)
== END ==
PROVIDERS: PCP Internal Medicine; Referring Provider Specialist; Visit Provider Specialist
DX: N40.1 Benign prostatic hyperplasia with lower urinary tract symptoms (principal); N13.8 Other obstructive and reflux uropathy; R97.20 Elevated prostate specific antigen [PSA]
CPT/HCPCS: 36415; 84153

== ENCOUNTER → 2023-04-30 13:37 | Outpatient (CLI) | payer MEDICARE, OTHER, SELFPAY ==
[2023-04-30 15:19] LABS: Prostate Specific Antigen 4.59 ng/mL (0.10-4.00)
== END ==
PROVIDERS: PCP Internal Medicine; Referring Provider Specialist; Visit Provider Specialist
DX: N40.1 Benign prostatic hyperplasia with lower urinary tract symptoms (principal); R97.20 Elevated prostate specific antigen [PSA]; N13.8 Other obstructive and reflux uropathy
CPT/HCPCS: 36415; 84153

== ENCOUNTER → 2023-09-11 08:50 | Outpatient (CLI) | payer MEDICARE, OTHER, SELFPAY ==
[2023-09-14 14:45] LABS: PSA, Total 4.7 ng/mL (0.0-4.0)
== END ==
PROVIDERS: PCP Internal Medicine; Referring Provider Specialist; Visit Provider Specialist
DX: R97.20 Elevated prostate specific antigen [PSA] (principal)
CPT/HCPCS: 36415; 84153; 84154

== ENCOUNTER 2023-10-24 11:45 | Emergency (ER) | payer MEDICARE, OTHER, SELFPAY ==
[2023-10-24 11:55] VITALS: BP 174/83; PULSE 82; RESP 16; TEMP 36.2; O2SAT 99; BMI 27.2
[2023-10-24 12:17] LABS: Urine Volume 10mL (spun)
[2023-10-24 12:27] LABS: UR Morphine/Opiate cutoff 300 Negative (Negative); Ur Creatinine Normal (Normal); Ur Specific Gravity Normal (Normal); Urine Amphetamines Negative (Negative); Urine Barbiturates Negative (Negative); Urine Benzodiazepines Negative (Negative); Urine Cocaine Negative (Negative); Urine MDMA Negative (Negative); Urine Methadone Negative (Negative); Urine Methamphetamines Negative (Negative); Urine Oxycodone Negative (Negative); Urine Phencyclidine Negative (Negative); Urine Tetrahydrocannabinol Negative (Negative); Urine Tricyclic Antidepressant Negative (Negative); Urine pH Normal (Normal)
[2023-10-24 12:28] LABS: Bacteria Urine None Seen; RBC Urine 10-30/HPF (0-5/HPF); WBC Urine 1-5/HPF (0-5/HPF)
[2023-10-24 12:29] LABS: Culture Indicated Urine Cult Not Indicated; Mucus Urine 2+ (Negative); Squamous Epithelial Cell Urine 0-1 /HPF (0-5/HPF)
[2023-10-24 13:03] LABS: Add Manual Diff / Slide Review NO; Basophils Absolute Auto 100 /uL (0-100); Basophils Percent Auto 0.7 % (0-2); Eosinophils Absolute Auto 300 /uL (0-450); Eosinophils Percent Auto 3.8 % (2-4); Hematocrit 49.5 % (41-53); Hemoglobin 16.9 g/dL (13.5-17.5); Lymphocytes Absolute Auto 1300 /uL (1100-4500); Mean Corpuscular HGB Conc 34.1 % (30-36); Mean Corpuscular Hemoglobin 29.6 PG (26-34); Mean Corpuscular Volume 86.7 fL (80-100); Monocytes Absolute Auto 700 /uL (0-900); Monocytes Percent Auto 9.6 % (3-14); Neutrophils Absolute Auto 4700 /uL (1500-7000); Neutrophils Percent Auto 66.9 % (50-75); Platelet Count 257 X10^3/uL (150-400); Red Cell Distribution Width 14.2 % (11.6-14.8)
--- NOTE | 2023-10-24 13:16 | ED.PSYCH ---
HPI - Psych General Chief Complaint: Psychiatric Symptoms Stated Complaint: physc issues Time Seen by Provider: 10/24/23 12:05 Source: patient Mode of arrival: Ambulatory History of Present Illness HPI Narrative: Patient is a 67-year-old male. No prior history of mental health issues. Has had quite a few traumatic episodes in his life. Has lost multiple family members to include a child in his life. He states that several months ago he had a daughter who had some legal issues. The patient states that he went down to help her out and during that time had very difficult time processing the events. Spent a lot of time crying. Since that time has had issues with sleeping at night. He also states that several days ago he started to look through some pictures of family members who have and he has become very emotional about this as well. Over the past years he occasionally will hear here someone calling his name. He has not suicidal. Not homicidal. Denies substance abuse. Family at bedside states the patient has had episodes of paranoia over the past couple weeks as well. He is also become very hyper spiritual. He is on carvedilol and tamsulosin but no other medications. Denies headaches or fevers. Related Data Previous Rx's Medication Instructions Recorded tamsulosin 0.4 mg capsule 0.4 mg PO BEDTIME #90 caps 01/09/23 carvedilol 6.25 mg tablet 6.25 mg PO BID #180 tabs 10/06/23 trazodone 50 mg tablet 25 mg (1/2 x 50 mg) PO BEDTIME PRN 10/24/23 insomnia #14 tabs Allergies Allergy/AdvReac Type Severity Reaction Status Date / Time No Known Drug Allergies Allergy Verified 10/24/23 12:02 Review of Systems Review of Systems ROS Unobtainable: All systems reviewed & are unremarkable except as noted in HPI and below Patient History Medical History Bilateral tinnitus History of nephrolithiasis Bilateral nephrolithiasis History of colonic polyps Lesion of lip Erectile dysfunction GERD without esophagitis Mixed hyperlipidemia Essential hypertension History of atrial flutter BPH w urinary obs/LUTS Elevated PSA Calcium nephrolithiasis Social History household members: spouse Smoking Status: Never smoker alcohol intake: current Smoking Status: Never smoker alcohol intake frequency: a few times a week Substance Use Type: does not use Exam Initial Vital Signs Initial Vital Signs: Vital Signs Temperature 97.1 F L 10/24/23 11:55 Pulse Rate 82 10/24/23 11:55 Respiratory Rate 16 10/24/23 11:55 Blood Pressure 174/83 H 10/24/23 11:55 Pulse Oximetry 99 10/24/23 11:55 Oxygen Delivery Method Room Air 10/24/23 11:55 Const General: cooperative, comfortable and No ill appearing HENMT Head: normal to inspection and normocephalic Resp Effort & Inspection: normal respiratory effort Auscultation: clear to auscultation bilaterally Cardio Rate: regular rate Rhythm: regular rhythm Skin General: no rashes or lesions noted Neuro General: patient alert, patient awake, patient oriented x3 and moves all extremities Extrem General: capillary refill normal Psych Other: Patient is calm, is somewhat tearful in the room. Not suicidal. Not homicidal. No current hallucinations. Is anxious. Scores GCS Loly coma scale eye opening: Spontaneous Loly coma scale verbal response: Orientated Loly coma scale motor response: Obey commands [place] coma scale total score: 15 Course Orders Ordered: ED Orders 10/24/23 12:10 Urine Drug Screen, Rapid Stat Urine Microscopic Stat 10/24/23 12:31 Acetaminophen Stat Complete Blood Count AUTO DIFF Stat Comprehensive Metabolic Panel Stat Ethanol (ETOH) Stat Free T4, Direct Thyroxine Stat Salicylate Stat Thyroid Stimulating Hormone Stat 10/24/23 13:16 CT head/brain wo con Stat 10/24/23 13:22 Consult to MANAGER STERILE PROCESSING - Payroll Technician Stat Vital Signs Vital signs: Vital Signs - 8 hr 10/24/23 11:55 Temperature 97.1 F L Pulse Rate 82 Respiratory Rate 16 Blood Pressure 174/83 H Pulse Oximetry 99 Oxygen Delivery Method Room Air MDM - Psych Lab Data Attestation: I reviewed the patient's lab results. 10/24/23 12:31 10/24/23 12:31 Labs: Lab Results 10/24/23 10/24/23 Range/Units 12:10 12:31 WBC 7.0 (4.5-11.0) X10^3/uL RBC 5.70 (4.5-5.9) X10^6/uL Hgb 16.9 (13.5-17.5) g/dL Hct 49.5 (41-53) % MCV 86.7 (80-100) fL MCH 29.6 (26-34) PG MCHC 34.1 (30-36) % RDW 14.2 (11.6-14.8) % Plt Count 257 (150-400) X10^3/uL Neut % (Auto) 66.9 (50-75) % Lymph % (Auto) 19.0 L (25-40) % [place] % (Auto) 9.6 (3-14) % Eos % (Auto) 3.8 (2-4) % Baso % (Auto) 0.7 (0-2) % Neut # (Auto) 4700 (9084-5512) /uL Lymph # (Auto) 1300 (8502-2907) /uL [place] # (Auto) 700 (0-900) /uL Eos # (Auto) 300 (0-450) /uL Baso # (Auto) 100 (0-100) /uL Sodium 137 (137-145) mmol/L Potassium 4.0 (3.4-5.1) mmol/L Chloride 104 (98-107) mmol/L Carbon Dioxide 25 (22-32) mmol/L BUN 9 (9-20) mg/dL Creatinine 0.83 (0.66-1.25) mg/dL Estimated GFR > 60 (>60) mL/min BUN/Creatinine Ratio 10.8 (6-22) Glucose 137 H (80-110) mg/dL Calcium 9.9 (8.4-10.2) mg/dL Total Bilirubin 1.2 (0.2-1.3) mg/dL AST 39 (17-59) IU/L ALT 22 (<50) IU/L Alkaline Phosphatase 71 (38-126) U/L Total Protein 8.0 (6.3-8.2) g/dL Albumin 4.5 (3.5-5.0) g/dL Globulin 3.5 (1.7-4.1) g/dL Albumin/Globulin Ratio 1.3 (1.0-2.8) TSH 0.828 (0.47-4.68) uIU/mL Free T4 1.60 (0.78-2.19) ng/dL Urine RBC 10-30/hpf H (0-5/HPF) Urine WBC 1-5/hpf (0-5/HPF) Ur Squamous Epith Cells 0-1 /hpf (0-5/HPF) Urine Bacteria None seen (None) Urine Mucus 2+ H (Negative) Ur Culture Indicated? Cult not indicated Vol Urine Centrifuged 10ml (spun) Salicylates < 1.0 (<20) mg/dL U Opiates 300ng/mL cut Negative (Negative) Ur Oxycodone Screen Negative (Negative) Urine Methadone Screen Negative (Negative) Acetaminophen < 10 (10-30) ug/mL Ur Barbiturates Screen Negative (Negative) U Tricyclic Antidepress Negative (Negative) Ur Phencyclidine Scrn Negative (Negative) Ur Amphetamines Screen Negative (Negative) U Methamphetamines Scrn Negative (Negative) Ur MDMA Scrn (Ecstasy) Negative (Negative) U Benzodiazepines Scrn Negative (Negative) Urine Cocaine Screen Negative (Negative) U Marijuana (THC) Screen Negative (Negative) Urine pH Normal (Normal) Urine Specific [place] Normal (Normal) Ethyl Alcohol < 10 ( - 10) mg/dL Ur Creatinine Normal (Normal) Urine Dip Bedside Urine Glucose Negative Bedside Urine Bilirubin - Negative Bedside Urine Ketone - Negative Urine Specific [place] 1.020 Bedside Urine Occult Blood +++ Bedside Urine pH 6 Bedside Urine Protein - Negative Bedside Urine Urobilinogen - Negative Bedside Urine Nitrite - Negative Bedside Urine Leukocytes - Negative Esterase Imaging Data CT scan - head: Radiologist's Impression: PROCEDURE: CT HEAD/BRAIN WO CON INDICATIONS: New onset paranoia, anxiety and depression TECHNIQUE: Noncontrast 4.5 mm thick angled axial sections acquired from the foramen magnum to the vertex, with coronal and sagittal reformats. For radiation dose reduction, the following was used: automated exposure control, adjustment of mA and/or kV according to patient size. COMPARISON: None. FINDINGS: Image quality: Diagnostic. CSF spaces: Basal cisterns are patent. No extra-axial fluid collections. Ventricles are normal in size and shape. Brain: No midline shift. No intracranial masses or hemorrhage. No area of hypodensity in a large vascular distribution to suggest acute infarction. Skull and face: Calvarium and visualized facial bones are intact, without suspicious lesions. Left ear calcifications. Sinuses: Visualized sinuses and mastoids are clear. IMPRESSION: No acute intracranial abnormality. MDM Narrative Medical decision making narrative: Patient is not suicidal. Not homicidal. Is calm in the room. Patient was seen by social work. Was also seen by [facility]. We were able to schedule a follow-up appointment with his primary doctor on Friday. Patient does not meet criteria for an involuntary admission. Patient does not want admitted to the hospital. He obviously has quite a bit of stressors in his life that seemed to be worsening over the past several months. Medical workup here in the ER is unremarkable. He was medically cleared. Patient and family comfortable being discharged home. Was sent home with trazodone that he can use at night to try to help him sleep. Will start off on a low dose of this in the can be increased as needed. He was given return precautions. He expressed understanding and agreement. Discharge Plan Departure Patient Disposition: Home Clinical Impression: Insomnia Instructions: DI for Insomnia Activity Restrictions/Additional Instructions: Keep your scheduled appointment with your primary doctor on Friday. Use the trazodone as needed at night for sleep. Return to the emergency department for new or worsening symptoms. Prescriptions: New trazodone 50 mg tablet 25 mg PO BEDTIME PRN (Reason: insomnia) Qty: 14 0RF No Action tamsulosin 0.4 mg capsule 0.4 mg PO BEDTIME Qty: 90 3RF carvedilol 6.25 mg tablet 6.25 mg PO BID Qty: 180 3RF Referrals: Kyle Banuelos MD [Primary Care Provider] - Stand Alone Forms: Patient Portal/API
[2023-10-24 13:18] LABS: Acetaminophen < 10 ug/mL (10-30); Alanine Aminotransferase 22 IU/L (<50); Albumin 4.5 g/dL (3.5-5.0); Albumin Globulin Ratio 1.3 (1.0-2.8); Alkaline Phosphatase 71 U/L (38-126); Aspartate Aminotransferase 39 IU/L (17-59); BUN Creatinine Ratio 10.8 (6-22); Bilirubin Total 1.2 mg/dL (0.2-1.3); Blood Urea Nitrogen 9 mg/dL (9-20); Calcium 9.9 mg/dL (8.4-10.2); Carbon Dioxide 25 mmol/L (22-32); Chloride 104 mmol/L (98-107); Estimated Glomerular Filt Rate > 60 mL/min (>60); Ethanol (ETOH) < 10 mg/dL; Globulin 3.5 g/dL (1.7-4.1); Glucose 137 mg/dL (80-110); HEMOLYSIS 28 (0-50); Salicylate < 1.0 mg/dL (<20); Sodium 137 mmol/L (137-145)
[2023-10-24 14:03] LABS: Thyroid Stimulating Hormone 0.828 uIU/mL (0.47-4.68)
[2023-10-24 16:32] VITALS: BP 157/82; PULSE 66; RESP 16; O2SAT 97
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
== END 2023-10-24 16:34 | disposition home or self-care (01) ==
PROVIDERS: Emergency Provider Emergency Medicine; PCP Internal Medicine
DX: G47.00 Insomnia, unspecified (principal); F41.9 Anxiety disorder, unspecified; F32.A Depression, unspecified; F22 Delusional disorders
CPT/HCPCS: 36415; 70450; 80053; 80305; 80320; 80329; 81003; 81015; 84439; 84443; 85025; 99284; G0480

== ENCOUNTER → 2024-03-04 11:44 | Outpatient (CLI) | payer MEDICARE, OTHER, SELFPAY ==
[2024-03-09 07:21] LABS: PSA Free % 16.9 % (.); PSA, Total 3.2 ng/mL (0.0-4.0)
== END ==
PROVIDERS: PCP Internal Medicine; Referring Provider Specialist; Visit Provider Specialist
DX: R97.20 Elevated prostate specific antigen [PSA] (principal)
CPT/HCPCS: 84153; 84154

== ENCOUNTER → 2024-09-07 12:49 | Outpatient (CLI) | payer MEDICARE, OTHER, SELFPAY ==
--- NOTE | 2024-09-07 12:50 | DI.RAD.S_ITS ---
PROCEDURE: XR KUB INDICATIONS: Hx of nephrolithiasis TECHNIQUE: One view of the abdomen acquired. COMPARISON: [facility], CR, XR KUB, 04/25/2022, 14:21. FINDINGS: Surgical changes and devices: None. Bowel: Bowel gas pattern is normal. Soft tissues: Ill-defined calcifications sub cm in size projecting over the upper poles of both kidneys.. Visualized solid organ contours appear normal in size. Lung bases clear. Bones: No suspicious bony lesions. IMPRESSION: Ill-defined calcifications subcentimeter in size projecting over the upper poles of both kidneys suspicious for tiny renal calculi bilaterally. Dictated by: Ochoa Milligan M.D. on 09/07/2024 at 13:44 Approved by: Ochoa Milligan M.D. on 09/07/2024 at 13:46
[2024-09-07 22:06] LABS: Prostate Specific Antigen 4.43 ng/mL (0.10-4.00)
== END ==
PROVIDERS: PCP Internal Medicine; Referring Provider Urology; Visit Provider Urology
DX: R97.20 Elevated prostate specific antigen [PSA] (principal); Z87.442 Personal history of urinary calculi; N28.89 Other specified disorders of kidney and ureter
CPT/HCPCS: 36415; 74018; 84153

== ENCOUNTER → 2024-09-17 11:32 | Outpatient (CLI) | payer MEDICARE, OTHER, SELFPAY ==
--- NOTE | 2024-09-17 11:33 | DI.CT.S_ITS ---
PROCEDURE: CT ABDOMEN PELVIS WO CON INDICATIONS: Kidney stones, microscopic hematuria, flank pain TECHNIQUE: Axial sections were acquired from the lung bases to the pubic symphysis. Coronal and sagittal reformats were performed. For radiation dose reduction, the following was used: automated exposure control, adjustment of mA and/or kV according to patient size. COMPARISON: [facility], CT, CT ABDOMEN PELVIS W CON, 10/25/2021, 7:42. FINDINGS: Image quality: Diagnostic Lower chest: Unremarkable lung bases Mild fluid is seen in the distal esophagus. Normal heart size. Liver: No contour deforming mass. Solid organs not well assessed without IV contrast Gallbladder and biliary system: Unremarkable, nondilated Pancreas: No ductal dilation Spleen: Nonenlarged Adrenals: No discrete nodules Kidneys: There are many nonobstructing renal calculi bilaterally the largest on the right upper pole measures up to 6-7 mm and the largest in the left upper pole measures 4 mm. No hydronephrosis. No contour deforming mass. Possible cysts are seen, not well assessed on noncontrast study Vessels and lymph nodes: Atherosclerotic calcifications. No abdominal aortic aneurysm or pathologic lymph nodes by size criteria. Bowel and peritoneum: No evidence of small bowel obstruction. Mild wall thickening of the distal colon and rectum. There are colonic diverticula. No pathologic ascites Body wall: Small fat containing umbilical and left inguinal hernias Pelvis: Under distended bladder wall thickening, not well assessed on CT. Heterogeneous prostate with calcifications also not well assessed on CT Bones: Degenerative changes are present. IMPRESSION: Many nonobstructing renal calculi are seen in the calices, measuring up to 7 mm on the right and 4 mm on the left. No hydronephrosis. Thick wall urinary bladder, which is under distended on this study. In the setting of hematuria, consider CT IVP and cystoscopy if clinically indicated. Other findings above. Dictated by: Alejo Carrera M.D. on 09/17/2024 at 22:47 Approved by: Alejo Carrera M.D. on 09/17/2024 at 22:52
== END ==
LOC: CT 11:32
PROVIDERS: PCP Internal Medicine; Referring Provider Urology; Visit Provider Urology
DX: N20.0 Calculus of kidney (principal); R31.29 Other microscopic hematuria; R10.9 Unspecified abdominal pain; K57.90 Diverticulosis of intestine, part unspecified, without perforation or abscess without bleeding; K42.9 Umbilical hernia without obstruction or gangrene; K40.90 Unilateral inguinal hernia, without obstruction or gangrene, not specified as recurrent; Z87.442 Personal history of urinary calculi
CPT/HCPCS: 74176

== ENCOUNTER → 2024-11-29 11:57 | Outpatient (CLI) | payer MEDICARE, OTHER, SELFPAY ==
--- NOTE | 2024-11-29 11:59 | EKG_ITS ---
[address] [address] Test Date: 2024-11-29 Pat Name: Ronald Concepcion Department: [facility] Room: Gender: Male Assistant Merchandiser: HERIBERTO : 1955 Requested By: Order Number: [id number] Reading MD: Andrae Lyn Measurements Intervals [place] Rate: 52 P: 54 MI: 170 QRS: 30 QRSD: 90 T: 24 QT: 448 QTc: 416 Interpretive Statements Sinus bradycardia Electronically Signed On 11-29-2024 18:39:13 PST by Andrae Lyn
== END ==
PROVIDERS: PCP Internal Medicine; Referring Provider Internal Medicine; Visit Provider Internal Medicine
DX: Z01.810 Encounter for preprocedural cardiovascular examination (principal)
CPT/HCPCS: 93005

== ENCOUNTER 2024-12-07 06:34 | Day surgery (SDC) | payer MEDICARE, OTHER, SELFPAY ==
[2024-11-25 12:28] VITALS: BMI 29.8
[2024-12-07] MEDS: LACTATED RINGERS 1,000 ML 42 ML IV (06:55)
[2024-12-07] MEDS: ACETAMINOPHEN 325 MG TABLET 975 MG PO (06:55)
[2024-12-07 06:56] VITALS: BMI 28.4
[2024-12-07 07:02] VITALS: BP 142/76; PULSE 52; RESP 17; TEMP 36.6; O2SAT 96
--- NOTE | 2024-12-07 07:41 | PM.PREOP ---
Pre-operative Note COVID-19 COVID-19 status: Not tested Interval Note History & Physical reviewed/Exam performed by Physician: Yes Changes to H&P: No
[2024-12-07] MEDS: CEFAZOLIN 2 GM/100 ML PREMIX 100 ML IV (07:55)
--- NOTE | 2024-12-07 08:33 | SUR.OPER ---
During stent placement, pt on ESWL bed in lithotomy position with arms at side and paddedd with gel pads. Supine on padded ESWL bed, head on pillow, arms at side and padded with gel pads, legs uncrossed, gel pad under heels.
--- NOTE | 2024-12-07 09:02 | P.OP_ITS ---
Procedure & Clinicians Procedure: Cystoscopy with right stent placement and right extracorporeal shockwave lithotripsy Same procedure as scheduled: Yes Indications: This 69-year-old male was found to have bilateral stones right greater than left with a 7 mm stone being the largest on the right he presents at this time for treatment of his right-sided stones with cystoscopy stent placement and right extracorporeal shockwave lithotripsy. Surgeon: Eliud Lerner Click Yes if Unassisted: Yes Anesthesia Type: General Operative Notes Findings: Findings at cystoscopy: Urethral meatus has a small hemangioma is otherwise unremarkable the urethra is normal along its length the sphincter as well coapted the prostate shows moderate obstructive character. The ureteral orifices in normal position with clear efflux there was moderate trabeculation within the bladder and no mucosal lesions or stones within the bladder. A 7 [place] multi length stent was left in good position in the right collecting system without a string. At lithotripsy 2 major stones were noted. On CT there appeared also to be some smaller stones but I believe these are Burke's plaques and were not visualized by fluoroscopy. There was a 5 mm stone in the upper pole and a 7 mm stone just lateral and inferior to it. The upper pole stone appeared to be harder and was treated with 1500 shocks at level 7-7.5. The larger stone appeared to be softer and was treated with 500 shocks at level 7-7.5 in both fragmented well. This was confirmed by fluoroscopy at the end of the case. No other abnormalities or significant findings were noted. Closure Type: not applicable Specimen(s): none sent Prosthetic devices, grafts, tissues, transplants, or devices: Seven [place] by multi length stent in the right collecting system without a string Estimated Blood Loss (mL): 0 Blood products transfused: none Procedure in detail: Procedure in detail: After informed consent was obtained, the patient was identified brought to the operating room where he was placed in the supine position on the Lithotripter. Once there anesthesia was induced and maintained. Ensuring an adequate level of anesthesia patient was transitioned to the lithotomy position where he was prepped, draped and prepared for Transurethral procedure. Ensuring an adequate level of anesthesia and after administration of antibiotics, time-out and prepping and draping a 22 [place] cystoscope was attempted to be passed through the meatus. It was just slightly too small so Omar sounds were employed in the meatus was dilated from 20 to 26 [place]. The scope then easily passed through the urethra prostate and in the bladder where cystoscopy was performed. With these findings in hand the right ureteral orifices once again identified and a hybrid wire was then passed up an in his collecting system under fluoroscopic visualization. With the wire in good position the stent was passed over the wire and positioned in the renal pelvis under fluoroscopic visualization. With the in good position the wire was removed and it was again observed to be under direct vision in the bladder in good position and via fluoroscopy in the kidney in good position. The nylon harness was removed and the stent was left in place. The bladder was drained the scope was removed and the patient was transitioned back to the supine position. The upper pole stone was then targeted via the image system and shock waves delivered at level 7-7.5 for a total of 1500 shocks. At 1000 shocks the larger inferior and lateral stone was targeted and was delivered shock waves at level 7-7.5 for a total of 500 shocks. Then the targeting was sent back up to the upper pole stone and the remainder 500 shocks at 7-7.5 were delivered. Throughout this process periodic reimaging and re localization was performed to ensure maximal energy delivery to the stones. At 2000 shock waves the shockwave head was rotated out fluoroscopy performed this showed the stones to be well fragmented. At this point the patient was awakened having tolerated the procedure well to be transferred to the postanesthesia care unit for recovery. There were no complications. The patient will follow up in my office in 10-14 days with a KUB. Complications: none Post-operative Condition: stable Disposition: PACU Plan for aftercare: Once fully recovered the patient will be discharged to home patient will strain his urine and follow up in my office in 10-14 days with a KUB.
[2024-12-07 09:03] VITALS: BP 116/60; PULSE 59; RESP 16; TEMP 36.7; O2SAT 94
[2024-12-07 09:08] VITALS: BP 124/68; PULSE 59; RESP 13; O2SAT 94
[2024-12-07 09:13] VITALS: BP 123/66; PULSE 57; RESP 9; O2SAT 94
[2024-12-07 09:19] VITALS: BP 117/63; PULSE 61; RESP 13; O2SAT 97
[2024-12-07 09:24] VITALS: BP 131/70; PULSE 57; RESP 11; TEMP 36.1; O2SAT 97
== END 2024-12-07 09:56 | disposition home or self-care (01) ==
PROVIDERS: PCP Internal Medicine; Referring Provider Urology; Visit Provider Urology
PROC: (CPT 50590; principal; 2024-12-07 07:45)
DX: N20.0 Calculus of kidney (principal); N40.1 Benign prostatic hyperplasia with lower urinary tract symptoms; N13.8 Other obstructive and reflux uropathy
CPT/HCPCS: 50590; 52332; 82962; C2617; J0690; J1100; J1885; J2405; J2704; J3010

== ENCOUNTER → 2024-12-14 17:15 | Outpatient (CLI) | payer MEDICARE, OTHER, SELFPAY ==
--- NOTE | 2024-12-14 17:17 | DI.RAD.S_ITS ---
PROCEDURE: XR KUB INDICATIONS: Rule out recurrent stones TECHNIQUE: One view of the abdomen acquired. COMPARISON: [facility], CT, CT ABDOMEN PELVIS WO CON, 09/17/2024, 11:40. [facility], CR, XR KUB, 09/07/2024, 13:01. FINDINGS: Surgical changes and devices: Double-J right ureteral stent Bowel: Bowel gas pattern is normal. Soft tissues: No suspicious abdominal calcifications. Visualized solid organ contours appear normal in size. No renal stones are identified. That being said, there were numerous right-sided stones present on the previous CT from August. Bones: No suspicious bony lesions. IMPRESSION: Although no residual renal stones are identified, there is likely head that there are multiple residual right renal stones. Comment: Consider CT KUB. Dictated by: Hugh Leiva M.D. on 12/15/2024 at 16:26 Approved by: Hugh Leiva M.D. on 12/15/2024 at 16:28
== END ==
PROVIDERS: PCP Internal Medicine; Referring Provider Urology; Visit Provider Urology
DX: Z87.442 Personal history of urinary calculi (principal); Z09 Encounter for follow-up examination after completed treatment for conditions other than malignant neoplasm
CPT/HCPCS: 74018

== ENCOUNTER → 2024-12-15 15:19 | Outpatient (CLI) | payer MEDICARE, OTHER, SELFPAY ==
[2024-12-23 18:36] LABS: Ca oxalate monohydr 100 % (.); Size 3x2 mm (.)
== END ==
PROVIDERS: PCP Internal Medicine; Visit Provider Urology
DX: N20.0 Calculus of kidney (principal); R31.29 Other microscopic hematuria; R10.9 Unspecified abdominal pain; Z87.898 Personal history of other specified conditions
CPT/HCPCS: 81002; 82365

== ENCOUNTER → 2024-12-19 11:42 | Outpatient (CLI) | payer MEDICARE, OTHER, SELFPAY ==
--- NOTE | 2024-12-19 11:43 | DI.CT.S_ITS ---
PROCEDURE: CT KIDNEY URETER BLADDER (KUB) INDICATIONS: 69 y/o M s/p right ESWL, eval for stone TECHNIQUE: Axial sections were acquired from the lung bases to the pubic symphysis. Coronal and sagittal reformats were performed. For radiation dose reduction, the following was used: automated exposure control, adjustment of mA and/or kV according to patient size. COMPARISON: [facility], CT, CT KIDNEY URETER BLADDER (KUB), 04/26/2020, 5:38. [facility], CT, CT ABDOMEN PELVIS WO CON, 09/17/2024, 11:40. FINDINGS: Image quality: Diagnostic Lower chest: Basal atelectasis. Mildly thickened distal esophageal wall, nonspecific. Trace hiatal hernia. Liver: Solid organs are not well assessed without IV contrast. No contour deforming mass. Gallbladder and biliary system: Unremarkable, nondilated Pancreas: No ductal dilation Spleen: Nonenlarged Adrenals: No discrete nodules Kidneys: Multiple nonobstructing calculi are seen on the left. No hydronephrosis. The largest at the upper pole again seen measuring 4 mm. Many calculi again seen in the right kidney, most under 5 mm. The largest calculi in the right lower pole measure up to 6 mm x2, slightly increased compared to 09/17/2024 A right ureteral stent is in place. Vessels and lymph nodes: Atherosclerotic calcifications. No abdominal aortic aneurysm. No pathologic lymph nodes by size criteria Bowel and peritoneum: No small bowel obstruction. There are colonic diverticula. Nondilated appendix. No pathologic ascites Body wall: Kjzi-xh-[id number] fat containing umbilical hernia Pelvis: Small fat containing left inguinal hernia. No calcified bladder stones. Small prostate calcifications not well assessed on CT. nonspecific mild bladder wall thickening. Bones: No aggressive appearing osseous abnormality. Degenerative spine changes are present. IMPRESSION: Right ureteral stent is in expected position. Many nonobstructing calculi are seen in both kidneys as before, measuring up to 4 mm in the left upper pole and 6 mm in the right lower pole x2 (the latter is slightly increased compared to 09/17/2024 CT). No hydronephrosis. Nonspecific mild bladder wall thickening. Other incidental non renal findings above. Dictated by: Alejo Carrera M.D. on 12/19/2024 at 18:35 Approved by: Alejo Carrera M.D. on 12/19/2024 at 18:40
== END ==
PROVIDERS: PCP Internal Medicine; Referring Provider Urology; Visit Provider Urology
DX: N20.0 Calculus of kidney (principal); Z96.0 Presence of urogenital implants
CPT/HCPCS: 74176

== ENCOUNTER → 2025-02-18 09:28 | Outpatient (CLI) | payer MEDICARE, OTHER, SELFPAY ==
[2025-02-19 07:10] LABS: PSA Free % 11.3 % (.); PSA, Total 4.8 ng/mL (0.0-4.0)
== END ==
PROVIDERS: PCP Internal Medicine; Referring Provider Urology; Visit Provider Urology
DX: R97.20 Elevated prostate specific antigen [PSA] (principal)
CPT/HCPCS: 36415; 84153; 84154

== ENCOUNTER → 2025-02-22 14:48 | Outpatient (CLI) | payer MEDICARE, OTHER, SELFPAY ==
[2025-02-22 16:04] LABS: Aspartate Aminotransferase 31 IU/L (17-59); BUN Creatinine Ratio 14.4 (6-22); Blood Urea Nitrogen 14 mg/dL (9-20); Calcium 9.4 mg/dL (8.4-10.2); Carbon Dioxide 25 mmol/L (22-32); Chloride 105 mmol/L (98-107); Cholesterol 195 mg/dL (140-199); Estimated Glomerular Filt Rate > 60 mL/min (>60); Glucose 101 mg/dL (70-99); HDL Cholesterol 43 mg/dL (40-60); HEMOLYSIS < 15 (0-50); LDL Cholesterol Calculated 124 mg/dL (<100); Potassium 4.5 mmol/L (3.4-5.1); Sodium 137 mmol/L (137-145); Triglycerides 141 mg/dL (35-150)
== END ==
PROVIDERS: PCP Internal Medicine; Referring Provider Internal Medicine; Visit Provider Internal Medicine
DX: I10 Essential (primary) hypertension (principal); E78.2 Mixed hyperlipidemia
CPT/HCPCS: 36415; 80048; 80061; 84450

== ENCOUNTER → 2025-03-10 10:23 | Outpatient (CLI) | payer MEDICARE, OTHER, SELFPAY ==
--- NOTE | 2025-03-10 10:25 | DI.RAD.S_ITS ---
PROCEDURE: XR KUB INDICATIONS: Follow-up extracorporeal shockwave lithotripsy TECHNIQUE: One view of the abdomen acquired. COMPARISON: [facility], CR, XR KUB, 12/14/2024, 17:18. FINDINGS: Surgical changes and devices: Right-sided ureteral stent position is unchanged. Bowel: Bowel gas pattern is nonobstructive. No gross pneumoperitoneum. No significant fecal burden. Soft tissues: Small calcification is seen projecting in lower pole of right kidney lateral to the proximal ureteral stent. No gross left-sided renal calcification is seen. Visualized solid organ contours appear normal in size. Bones: No suspicious bony lesions. IMPRESSION: Right-sided ureteral stent in place. Faint calcifications seen projecting in the region of lower pole right kidney. No gross pneumoperitoneum. Dictated by: Nayan Ng M.D. on 03/13/2025 at 0:46 Approved by: Nayan Ng M.D. on 03/13/2025 at 0:51
== END ==
PROVIDERS: PCP Internal Medicine; Referring Provider Urology; Visit Provider Urology
DX: N20.0 Calculus of kidney (principal); Z87.442 Personal history of urinary calculi; Z96.0 Presence of urogenital implants
CPT/HCPCS: 74018

== ENCOUNTER → 2025-03-11 13:58 | Outpatient (CLI) | payer MEDICARE, OTHER, SELFPAY | PROVIDERS: PCP Internal Medicine; Visit Provider Urology | DX: N40.1 Benign prostatic hyperplasia with lower urinary tract symptoms (principal); N13.8 Other obstructive and reflux uropathy; N20.0 Calculus of kidney; R97.20 Elevated prostate specific antigen [PSA] | CPT/HCPCS: 51798; 87086; 99214 ==

== ENCOUNTER 2025-09-01 09:05 | Day surgery (SDC) | payer MEDICARE, OTHER, SELFPAY ==
[2025-08-11 10:38] VITALS: BMI 27.9
--- NOTE | 2025-09-01 06:30 | PM.HP.IH.1 ---
History of Present Illness History of Present Illness Date Patient Seen: 09/01/25 Chief complaint: Screening Colonoscopy Narrative: Presents for screening colonoscopy today. [facility] Medical History (Updated 09/01/25 @ 06:31 by Brayan Porras MD) Depression PTSD (post-traumatic stress disorder) Atrial fibrillation Anesthesia complication Microscopic hematuria History of elevated PSA Psychosis Bilateral tinnitus History of nephrolithiasis Bilateral nephrolithiasis History of colonic polyps Lesion of lip Erectile dysfunction GERD without esophagitis Mixed hyperlipidemia Essential hypertension History of atrial flutter BPH w urinary obs/LUTS Elevated PSA Calcium nephrolithiasis Surgical History Hx of hernia repair S/P cryoablation of arrhythmia Social History household members: spouse Smoking Status: Never smoker alcohol intake: current Meds Home Medications and Allergies Home Medications ?Medication ?Instructions ?Recorded ?Confirmed ?Type carvedilol 6.25 mg tablet 6.25 mg PO BID #180 tabs 10/14/24 05/25/25 Rx trazodone 50 mg tablet 25 mg PO BEDTIME Sleep 11/25/24 05/25/25 History tamsulosin 0.4 mg capsule 0.8 mg (2 x 0.4 mg) PO BEDTIME 03/30/25 05/25/25 Rx #180 caps tadalafil 5 mg tablet 5 mg PO DAILY #90 tabs 05/25/25 05/25/25 Rx sodium,potassium,mag sulfates 17.5 See Rx Instructions PO .COMPLEX 07/22/25 Rx gram-3.13 gram-1.6 gram oral soln #354 mL (Suprep Bowel Prep Kit) Allergies Allergy/AdvReac Type Severity Reaction Status Date / Time flecainide AdvReac Severe Depression Verified 05/25/25 11:04 etomidate AdvReac Unknown Hypotension Verified 05/25/25 11:04 Exam Narrative Exam Narrative: Const General: healthy appearing, comfortable and no acute distress Orientation: alert and oriented x3 HENMT Ears: hearing grossly normal bilaterally Eyes Visual Green: normal visual green by confrontation Conjunctivae: conjunctivae normal Sclera: sclerae normal EOM: EOM intact bilaterally Resp Effort & Inspection: normal respiratory effort and able to speak in complete sentences Cardio Rate: regular rate GI Palpation: soft (NT) Extrem General: no pedal edema and no calf tenderness Assessment & Plan Assessment and plan (1) Encounter for screening colonoscopy: Status: Acute Plan Plan colonoscopy, possible biopsy. The risks, benefits and options regarding the procedure were explained to the patient in detail. Risk discussion included but not limited to: bleeding, perforation, unable to reach cecum, missed lesion. The patient was encouraged to ask questions and they were answered to their satisfaction. The patient understands and is agreeable to proceed. Time-Based Coding :: [TOTAL MINUTES] spent with patient and on the chart (including review of chart, obtaining history, exam, reviewing outside data, placing orders, documenting exam and treatment plan, and counseling patient) on [DATE]. [facility] Or Department Chief Librarian Document charge(s): Yes Charge Codes Inpatient/observation care including admit and discharge same day: [id number]
[2025-09-01 09:24] VITALS: BP 159/77; PULSE 62; RESP 16; TEMP 36.1; O2SAT 95
[2025-09-01] MEDS: LACTATED RINGERS 1,000 ML 42 ML IV (09:28)
--- NOTE | 2025-09-01 10:20 | P.OP.COLON_ITS ---
Operative Date/Time/Diagnoses Date of procedure: 09/01/25 Time of procedure: 10:43 Pre-op diagnosis: Screening colonoscopy Post-op diagnosis: same Procedure & Clinicians Study performed: Screening colonoscopy Same procedure(s) as scheduled: Yes Indications: 69yo M, screening colonoscopy Surgeon: Brayan Porras Anesthesia Type: MAC +/- Procedure Notes SCOAP/Timeout: Performed Procedure in detail: Colonoscopy Patient placed in left lateral recumbent position. Time out was performed. Procedural sedation was administered by anesthesia. Examination began with a t horough inspection of the perianal area. There was no evidence of fissures, fistulae, external hemorrhoids or cutaneous malignancy. The colonoscope was then placed into the rectum and the lumen was insufflated with carbon dioxide. The scope was carefully advanced forward. Ultimately the cecum was intubated and confirmed by identification of the ileocecal valve, the appendiceal orifice and the confluence of the taenia. The scope was then slowly withdrawn examining the colon thoroughly in all directions. In the rectum, retroflexion of the scope was performed for inspection of the distal rectum and anal canal. ?Significant colonoscopy findings: ?1. Quality of the preparation-good, [place] 2-3, improved with irrigation/suction ?2. No polyps, strictures, mass 3. Small internal hemorrhoids 4. Few sigmoid diverticulae Scope withdrawal time: 7 minutes Findings: divertiulosis and internal hemorrhoids Specimen(s): none sent Estimated Blood Loss: 5 Complications: none Impression: Normal screening colonoscopy Post-procedure Recommendations: Colonoscopy in 10 years Plan for aftercare: PACU then home Follow up: as needed Disposition: PACU
--- NOTE | 2025-09-01 10:26 | SUR.OPER ---
scope number [id number]
[2025-09-01 10:49] VITALS: BP 98/57; PULSE 54; RESP 16; TEMP 36.5; O2SAT 97
[2025-09-01 10:50] VITALS: BP 99/57; PULSE 54; RESP 16; O2SAT 95
[2025-09-01 11:07] VITALS: BP 119/58; PULSE 58; RESP 16; O2SAT 95
== END 2025-09-01 11:10 | disposition home or self-care (01) ==
PROVIDERS: PCP Internal Medicine; Referring Provider Surgery; Visit Provider Surgery
PROC: 0DJD8ZZ Inspection of Lower Intestinal Tract, Via Natural or Artificial Opening Endoscopic (ICD-10-PCS; CPT 45378; principal; 2025-09-01 10:00)
DX: Z12.11 Encounter for screening for malignant neoplasm of colon (principal); K57.30 Diverticulosis of large intestine without perforation or abscess without bleeding; K64.8 Other hemorrhoids
CPT/HCPCS: G0121; J2704; J7120